=== PATIENT | male | born 1955 | race African-American/Black ===

== ENCOUNTER 2018-08-18 12:20 | Inpatient (IN) ==
[2018-08-18] MEDS ORDERED: NS 1,000 ML IV ONE (12:29)
--- NOTE | 2018-08-18 13:07 | Diag Imaging Result Doc PS360 ---
EXAM: CT HEAD W/O CONTRAST 08/18/2018 HISTORY: SYNCOP TECHNIQUE: This exam was performed using automated exposure control, adjustment of mA or kV according to patient size, and/or use of iterative reconstruction technique. COMMENT: There are extensive areas of encephalomalacia in the right hemisphere and the left posterior inferior cerebellar hemisphere. No evidence of bleed or mass effect is present. There are some cortical calcifications on the left. Compared to the previous examination of 09/18/2017 the appearance of the brain has not changed significantly. IMPRESSION: Extensive infarction of the right cerebral hemisphere and left cerebellar hemisphere. No evidence of acute change. Electronically signed by Rashaad Lim 08/18/2018 1:05 PM
[2018-08-18 13:14] LABS: URINE SOURCE CLEAN CATCH
--- NOTE | 2018-08-18 13:20 | Diag Imaging Result Doc PS360 ---
EXAM: SHOULDER-LEFT 08/18/2018 HISTORY: FALL TECHNIQUE: Left shoulder two views COMMENT: There is a fracture of the surgical neck of the humerus. There is deformity of the distal clavicle which may be due to previous fracture. The distal fragment of the humerus is displaced slightly anteriorly. IMPRESSION: Fracture of the proximal humerus. Electronically signed by Rashaad Lim 08/18/2018 1:18 PM
--- NOTE | 2018-08-18 13:21 | Diag Imaging Result Doc PS360 ---
EXAM: CHEST-1 VIEW 08/18/2018 HISTORY: SYNCOPE TECHNIQUE: Erect AP chest COMMENT: The fracture of the left humerus is again noted. Lungs are clearer than they were on 07/11/2018. IMPRESSION: Resolution of pulmonary edema seen on 07/11/2018. Fracture proximal left humerus. Electronically signed by Rashaad Lim 08/18/2018 1:19 PM
[2018-08-18 13:27] LABS: BILIRUBIN URINE NEGATIVE (NEGATIVE); BLOOD URINE TRACE (NEGATIVE); CLARITY CLEAR (CLEAR); COLOR YELLOW; GLUCOSE URINE NEGATIVE (NEGATIVE); KETONE URINE NEGATIVE (NEGATIVE); LEUKOCYTES URINE 2+ (NEGATIVE); NITRITE URINE POSITIVE (NEGATIVE); PROTEIN URINE NEGATIVE (NEGATIVE); URINE BACTERIA 3+ /HFP; URINE EPITHELIAL CELLS <10 /HPF (<10); UROBILINOGEN URINE NORMAL
[2018-08-18] MEDS ORDERED: MORPHINE IV ONE (13:54)
[2018-08-18 13:59] LABS: BASO# 0.03 X1000 (0.0-0.2); BASO% 0.5 % (0.0-0.8); EOS% 1.6 % (0.0-10.0); HEMATOCRIT 33.1 % (42.0-52.0); HEMOGLOBIN 11.7 g/dL (14.0-18.0); IMM GRAN# 0.01 X1000 (0.0-0.04); IMM GRAN% 0.2 % (0.0-0.5); LYMPH# 3.11 X1000 (1.2-3.4); LYMPH% 49.9 % (20.5-51.1); MCH 27.7 PG (27-31); MCHC 35.3 g/dL (33-37); MCV 78.3 FL (81-99); MONO# 0.32 X1000 (0.11-0.59); MONO% 5.1 % (1.7-9.3); MPV 10.6 FL (7.4-10.4); NEUT# 2.66 X1000 (1.4-6.5); NEUT% 42.7 % (42.2-75.2); PLT 272 X1000 (130-400); RBC 4.23 XMIL (4.7-6.1); RDW 14.9 % (11.5-14.5); WBC 6.23 X1000 (4.8-10.8)
[2018-08-18] MEDS ORDERED: ROCEPHIN 1 GM in NS 50 ML IV ONE (14:01)
[2018-08-18 14:14] LABS: AGAP 10; ALBUMIN 3.6 g/dL (3.5-5.0); ALKALINE PHOSPHATASE 56 U/L (32-122); BUN 8 mg/dL (8-22); CALCIUM 9.8 mg/dL (8.8-10.2); CHLORIDE 99 mmol/L (98-107); COSMO 276; CREATININE 0.8 mg/dL (0.7-1.2); ESTIMATED GFR > 60; GLUCOSE 107 mg/dL (70-104); GOT 16 U/L (10-34); GPT 13 U/L (10-44); POTASSIUM 3.1 mmol/L (3.5-5.1); SODIUM 139 mmol/L (136-145); TCO2 30 mmol/L (25-35); TOTAL PROTEIN 7.1 g/dL (6.3-8.3)
[2018-08-18 14:21] LABS: INR 0.91; PROTIME 12.7 Seconds (11.0-16.0)
[2018-08-18 14:22] LABS: PTT 30.5 Seconds (22.3-41.8)
--- NOTE | 2018-08-18 14:31 | EKG Report ---
Test Performed on : 08/18/2018 1:28:48 PM Test Reason : SYNCOPE Blood Pressure : / mmHG Vent. Rate : 068 BPM Atrial Rate : 326 BPM P-R Int : 106 ms QRS Dur : 098 ms QT Int : 426 ms P-R-T Axes : 133 055 220 degrees QTc Int : 452 ms Undetermined rhythm Left ventricular hypertrophy with repolarization abnormality Cannot rule out Septal infarct (cited on or before 03-JUN-2009) Abnormal ECG When compared with ECG of 11-JUL-2018 03:21, (Unconfirmed) Current undetermined rhythm precludes rhythm comparison, needs review ST no longer depressed in Inferior leads Unconfirmed Result
--- NOTE | 2018-08-18 15:41 | PROVIDER DOCUMENTATION ---
This chart was entered by Maxine Das Scribe, acting as scribe for Sg Miranda MD. HPI-Syncope/Dizziness - General Stated Complaint: syncope Time Seen by Provider: 08/18/18 12:25 Source: patient Allergies/Adverse Reactions: Patient Allergies Allergy/AdvReac Type Severity Reaction Status Date / Time No Known Allergies Allergy Verified 08/18/18 14:58 Home Medications: Home Medication List Medication Instructions Recorded Confirmed Last Taken Type Aspirin 81 mg PO DAILY 05/10/13 06/04/18 06/03/18 History Tamsulosin [Flomax] 0.4 mg PO DAILY #30 capsule 06/05/15 06/04/18 05/16/16 Rx ATORVAstatin [Lipitor] 40 mg PO QHS #30 tablet 03/05/16 06/04/18 06/03/18 Rx Citalopram [Celexa] 20 mg PO DAILY 05/16/16 06/04/18 06/03/18 History Divalproex Sodium [Depakote ER] 500 mg PO DAILY 05/16/16 06/04/18 06/03/18 History Latanoprost 0.005% Oph Soln 1 drop BOTH EYES HS 05/16/16 06/04/18 06/03/18 History [Xalatan 0.005% Oph Soln] [place]-3 Fatty Acids [Fish Oil] 1,000 mg PO DAILY 05/17/16 06/04/18 Unknown History Levetiracetam [Keppra] 500 mg PO BID #0 tablet 05/28/16 06/04/18 06/03/18 Rx Acetaminophen [Tylenol Extra 2 tab PO BID 04/12/18 06/04/18 06/03/18 History Strength] LISINOpril [Prinivil] 10 mg PO DAILY #90 tab 04/13/18 06/04/18 Unknown Rx Furosemide [Lasix] 40 mg PO BID #60 tab 05/08/18 06/04/18 06/03/18 Rx Tramadol [Ultram] 50 mg PO Q6H PRN PRN #12 tab 05/18/18 06/04/18 Unknown Rx Doxycycline 100 mg PO DAILY 7 Days #13 tab 07/11/18 Unknown Rx - History of Present Illness-Syncope/Dizzy Nature of Presenting Problem: Patient is a 62 year old male who presents to the ED with left shoulder pain after having a syncopal episode. Patient states having a headache this morning before having the syncopal episode. Patient denies chest pain or shortness of breath. Patient states history of CVA. Prior Episodes: reports: single episode today Onset/Duration: reports: just prior to arrival Timing: reports: still present Position/Activity at time of episode: reports: standing Symptoms prior to episode: reports: headache Context: reports: unknown Loss of Consciousness: unsure Location of injury. (If syncope resulted in an injury.): reports: LUE Current Symptoms: reports: none/feels normal Review of Systems - Adult - REVIEW OF SYSTEMS - ADULT Constitutional: reports: no symptoms reported Eyes: reports: no symptoms reported Ears, Nose, Mouth & Throat: reports: no symptoms reported Cardiovascular: reports: no symptoms reported Respiratory: reports: no symptoms reported Gastrointestinal: reports: no symptoms reported Genitourinary: reports: no symptoms reported Musculoskeletal: reports: other (left shoulder pain). denies: back pain, neck pain Integumentary: reports: no symptoms reported Neurological: reports: headache/migraines (ARCE), syncope. denies: dizziness/ vertigo, numbness Psychiatric: reports: no symptoms reported Endocrine: reports: no symptoms reported Hematologic/Lymphatic: reports: no symptoms reported Allergic/Immunologic: reports: no symptoms reported All Other Systems: Reviewed and Negative Past History - Adult - PAST MEDICAL HISTORY-ADULT Review of Records: reports: Nursing Assessment Review, Medications Reviewed, Social history reviewed & non-contributory. Major Childhood Illnesses: reports: denies history Cardiovascular: reports: CAD, CHF, HTN, hyperlipidemia, [place] Respiratory: reports: denies history Gastrointestinal: reports: denies history Obstetrical/Gynecological: reports: denies history Genitourinary: reports: retention, other (BPH) Musculoskeletal: reports: denies history Neurological: reports: CVA, stroke deficits (left sided), Seizures/Epilepsy ( seizures) Endocrine/Immune: reports: Diabetes Other Conditions: reports: denies history - PRIOR SURGERIES/PROCEDURES Surgical/Procedure History: reports: cardiac stent, other (abdominal surgery) - PRIOR HOSPITALIZATIONS Prior Hospitalizations: reports: for similar symptoms - IMMUNIZATION STATUS Childhood Immunizations: See Nurse Assessment Flu Vaccine: See Nurse Assessment - FAMILY HISTORY Family History: reviewed, not pertinent - SOCIAL HISTORY Smoking: cigarettes, less than 1 pack/day Provider spent 3-5 mins advising pt. on dangers of tobacco.: Discussed manners to quit use, and f/u contacts for add'l counseling. Substance Use: alcohol Alcohol Use Frequency: occasionally Physical Exam-General - PHYSICAL EXAM-ADULT Initial Vital Signs Reviewed: Yes - CONSTITUTIONAL General Appearance: alert, no apparent distress - HEAD, EARS, NOSE, MOUTH & THROAT HENMT: normal ENT inspection - NECK Neck: normal inspection - RESPIRATORY Respiratory: chest non-tender, lungs clear, normal breath sounds - CARDIOVASCULAR Cardiovascular: normal peripheral pulses, regular rate, rhythm - GASTROINTESTINAL (ABDOMEN) Abdominal Exam: normal bowel sounds, non tender, soft - MUSCULOSKELETAL Extremity: tenderness (left shoulder pain) - SKIN Integumentary: normal color, normal turgor, warm/dry - NEUROLOGIC Neurologic: other (LUE weakness secondary to prior CVA.) - PSYCHIATRIC Psych/Mental Status: normal mood/affect, oriented x 3 Progress - PLAN OF CARE/RESULTS Progress/Plan/Lab Results: Vital Signs - 8 hr 08/18/18 12:26 08/18/18 15:00 Temperature 97.8 F Pulse Rate 67 58 L Respiratory Rate 20 15 Blood Pressure 137/071 157/64 O2 Sat by Pulse Oximetry 98 100 Laboratory Results - last 24 hr 08/18/18 08/18/18 08/18/18 13:03 13:03 13:28 WBC RBC Hgb Hct MCV MCH MCHC RDW Std Deviation Plt Count MPV Immature Gran % (Auto) Neut % (Auto) Lymph % (Auto) Levy % (Auto) Eos % (Auto) Baso % (Auto) Immature Gran # (Auto) Neut # (Auto) Lymph # (Auto) Levy # (Auto) Eos # (Auto) Baso # (Auto) PT INR PTT (Actin FS) Sodium 139 Potassium 3.1 L Chloride 99 Carbon Dioxide 30 Anion Gap 10 BUN 8 Creatinine 0.8 Estimated GFR/1.73 m2 > 60 BUN/Creatinine Ratio 10 Glucose 107 H Calculated Osmolality 276 Calcium 9.8 Total Bilirubin 0.50 AST 16 ALT 13 Alkaline Phosphatase 56 Troponin T Total Protein 7.1 Albumin 3.6 Globulin 4.0 Albumin/Globulin Ratio 1.0 Plasma Lactate Urine Source Cancelled CLEAN CATCH Urine Color Cancelled YELLOW Urine Clarity CLEAR Urine Turbidity Cancelled Urine pH Cancelled 7.0 Ur Specific [place] Cancelled 1.000 Urine Protein Cancelled NEGATIVE Ur Glucose (Stick) Cancelled Urine Ketones NEGATIVE Ur Ketones (Stick) Cancelled Urine Blood Cancelled TRACE Urine Nitrite Cancelled POSITIVE A Urine Bilirubin Cancelled NEGATIVE Urine Urobilinogen NORMAL Urobilinogen Dipstick Cancelled Urine Leukocytes Cancelled Urine WBC (Auto) Cancelled Urine RBC (Auto) Cancelled U Epithel Cells (Auto) Cancelled Urine Bacteria (Auto) Cancelled Urine Microscopic RBC Not Reportable Urine WBC 2+ A Urine Microscopic WBC 10-20 A Ur Epithelial Cells <10 Urine Bacteria 3+ Urine Glucose NEGATIVE 08/18/18 08/18/18 08/18/18 13:28 13:28 13:28 WBC 6.23 RBC 4.23 L Hgb 11.7 L Hct 33.1 L MCV 78.3 L MCH 27.7 MCHC 35.3 RDW Std Deviation 14.9 H Plt Count 272 MPV 10.6 H Immature Gran % (Auto) 0.2 Neut % (Auto) 42.7 Lymph % (Auto) 49.9 Levy % (Auto) 5.1 Eos % (Auto) 1.6 Baso % (Auto) 0.5 Immature Gran # (Auto) 0.01 Neut # (Auto) 2.66 Lymph # (Auto) 3.11 Levy # (Auto) 0.32 Eos # (Auto) 0.10 Baso # (Auto) 0.03 PT 12.7 INR 0.91 PTT (Actin FS) 30.5 Sodium Potassium Chloride Carbon Dioxide Anion Gap BUN Creatinine Estimated GFR/1.73 m2 BUN/Creatinine Ratio Glucose Calculated Osmolality Calcium Total Bilirubin AST ALT Alkaline Phosphatase Troponin T < 0.010 Total Protein Albumin Globulin Albumin/Globulin Ratio Plasma Lactate Urine Source Urine Color Urine Clarity Urine Turbidity Urine pH Ur Specific [place] Urine Protein Ur Glucose (Stick) Urine Ketones Ur Ketones (Stick) Urine Blood Urine Nitrite Urine Bilirubin Urine Urobilinogen Urobilinogen Dipstick Urine Leukocytes Urine WBC (Auto) Urine RBC (Auto) U Epithel Cells (Auto) Urine Bacteria (Auto) Urine Microscopic RBC Urine WBC Urine Microscopic WBC Ur Epithelial Cells Urine Bacteria Urine Glucose 08/18/18 14:15 WBC RBC Hgb Hct MCV MCH MCHC RDW Std Deviation Plt Count MPV Immature Gran % (Auto) Neut % (Auto) Lymph % (Auto) Levy % (Auto) Eos % (Auto) Baso % (Auto) Immature Gran # (Auto) Neut # (Auto) Lymph # (Auto) Levy # (Auto) Eos # (Auto) Baso # (Auto) PT INR PTT (Actin FS) Sodium Potassium Chloride Carbon Dioxide Anion Gap BUN Creatinine Estimated GFR/1.73 m2 BUN/Creatinine Ratio Glucose Calculated Osmolality Calcium Total Bilirubin AST ALT Alkaline Phosphatase Troponin T Total Protein Albumin Globulin Albumin/Globulin Ratio Plasma Lactate 0.6 Urine Source Urine Color Urine Clarity Urine Turbidity Urine pH Ur Specific [place] Urine Protein Ur Glucose (Stick) Urine Ketones Ur Ketones (Stick) Urine Blood Urine Nitrite Urine Bilirubin Urine Urobilinogen Urobilinogen Dipstick Urine Leukocytes Urine WBC (Auto) Urine RBC (Auto) U Epithel Cells (Auto) Urine Bacteria (Auto) Urine Microscopic RBC Urine WBC Urine Microscopic WBC Ur Epithelial Cells Urine Bacteria Urine Glucose Orders Category Date Time Status Cardiac Monitoring DIRECTED Care 08/18/18 12:26 Active Finger Stick Blood Sugar (ED) DIRECTED Care 08/18/18 12:26 Active Saline Loc NOW Care 08/18/18 12:26 Active Shoulder Immobilizer DIRECTED Care 08/18/18 13:52 Active CHEST-1 VIEW [RAD] Stat Exams 08/18/18 12:[address] HEAD W/O CONTRAST [CT] Stat Exams 08/18/18 12:26 Completed SHOULDER-LEFT [RAD] Stat Exams 08/18/18 12:27 Completed BC [BLOOD CULTURE] [BLDCUL] Stat Lab 08/18/18 14:24 Ordered CBC WITH ELECTRONIC DIFF [HEME] Stat Lab 08/18/18 13:28 Completed COMPREHENSIVE METABOLIC PANEL [CHEM] Stat Lab 08/18/18 13:28 Completed LACTATE, PLASMA [CHEM] Stat Lab 08/18/18 14:15 Completed PROTIME WITH INR [COAG] Stat Lab 08/18/18 13:28 Completed PTT [COAG] Stat Lab 08/18/18 13:28 Completed TROPONIN T Stat Lab 08/18/18 13:[address] W/POSS RFLX CULT [URINALYSIS] Stat Lab 08/18/18 13:03 Completed URINE CULTURE [RM] Routine Lab 08/18/18 13:27 Ordered 0.9% Sodium Chloride Inj [Ns] 1,000 ml Med 08/18/18 12:29 Active IV 150 mls/hr CefTRIAXONE [Rocephin] 1 gm Med 08/18/18 14:01 Discontinued 0.9% Sodium Chloride Inj [Ns] 50 ml IV NOW Morphine Med 08/18/18 13:54 Discontinued 4 mg IV NOW ONE EKG [EKG] Stat Ther 08/18/18 12:26 Draft Result Diagrams: 08/18/18 13:28 08/18/18 13:28 - EKG 1 Time of EKG reading by physician:: 13:45 EKG Read and Signed by:: Sg Miranda EKG Interpretation (*Must complete 3 of following elements*): Abnormal Rate: 65 Rhythm: normal sinus rhythm [place]: normal QRS: LVH OR Interval: normal ST Wave: non-specific ST changes Comments: anteroseptal infarct, age undetermined - XRAY 1 XRAY Study: Chest Impression: See EMR Report ( EXAM: CHEST-1 VIEW 08/18/2018 HISTORY: SYNCOPE TECHNIQUE: Erect AP chest COMMENT: The fracture of the left humerus is again noted. Lungs are clearer than they were on 07/11/2018. IMPRESSION: Resolution of pulmonary edema seen on 07/11/2018. Fracture proximal left humerus. Electronically signed by Rashaad Lim 08/18/2018 1:19 PM 08/18/18 1319 Interpreting Physician: Rashaad Lim MD Dictated Date/Time: 1318 cc: Sg Miranda MD;) 2 XRAY: Left XRAY Study: Shoulder Impression: See EMR Report (EXAM: SHOULDER-LEFT 08/18/2018 HISTORY: FALL TECHNIQUE: Left shoulder two views COMMENT: There is a fracture of the surgical neck of the humerus. There is deformity of the distal clavicle which may be due to previous fracture. The distal fragment of the humerus is displaced slightly anteriorly. IMPRESSION: Fracture of the proximal humerus. Electronically signed by Rashaad Lim 08/18/2018 1:18 PM 08/18/18 1318 Interpreting Physician: Rashaad Lim MD Dictated Date/Time: 1317 cc: Sg Miranda MD;) - CT/MRI 1 CT Study: Head Impression: See EMR Report ( EXAM: CT HEAD W/O CONTRAST 08/18/2018 HISTORY: SYNCOP TECHNIQUE: This exam was performed using automated exposure control, adjustment of mA or kV according to patient size, and/or use of iterative reconstruction technique. COMMENT: There are extensive areas of encephalomalacia in the right hemisphere and the left posterior inferior cerebellar hemisphere. No evidence of bleed or mass effect is present. There are some cortical calcifications on the left. Compared to the previous examination of 09/18/2017 the appearance of the brain has not changed significantly. IMPRESSION: Extensive infarction of the right cerebral hemisphere and left cerebellar hemisphere. No evidence of acute change. Electronically signed by Rashaad Lim 08/18/2018 1:05 PM 08/18/18 1305 Interpreting Physician: Rashaad Lim MD Dictated Date/Time: 1303 cc: Sg Miranda MD;) - CONSULTS/PCP/HOSPITALIST Notification #1 *Consult/PCP/Hospitalist*: Dr. Crowe Time Discussed: :24 Reason/Comments: Dr. Miranda consulted with Dr. Crowe about patient. Consult Disposition: Admit Departure - Departure Date of Disposition Decision: 08/18/18 Time of Disposition Decision: 15:24 DIAGNOSIS: UTI (urinary tract infection), Syncope, Left humeral fracture Disposition: ADMITTED INPATIENT 09 Certified Medical Emergency: Emergent Condition: Stable Referrals and Follow-Ups: Trudi Yen [Primary Care Provider] - - Critical Care Note This patient required my direct & personal management of CC.: No Attestation - Physician/ SPIKE Attestation Patient care was provided by Advanced Practice Provider:: No The physician spent face to face time with patient:: Yes Advanced Practice Provider documentation review:: Supervising physician onsite and consulted in the evaluation and care of this patient. The physician did have a face to face encounter with the patient. This chart was documented by the indicated scribe, (Maxine Das Scribe) and accurately reflects the services I performed and decisions made by me, Sg Miranda MD, as attested by the provider's signature.
[2018-08-18] MEDS ORDERED: KLOR-CON PO ONE (17:39)
[2018-08-18] MEDS ORDERED: ZOFRAN IV PRN (17:40)
[2018-08-18] MEDS ORDERED: ULTRAM PO PRN (17:46)
[2018-08-18] MEDS: NORCO-5 PO PRN (19:44)
[2018-08-18] MEDS: LOVENOX SUBQ SCH ×2 (19:45→19:49)
[2018-08-18] MEDS: GEODON IM PRN (20:19)
[2018-08-18] MEDS: STERILE WATER INJ. INJ PRN (20:20)
[2018-08-18] MEDS: LIPITOR PO SCH (20:20)
[2018-08-18] MEDS: LASIX PO SCH (20:20)
[2018-08-18] MEDS: KEPPRA PO SCH (20:20)
[2018-08-18] MEDS: XALATAN 0.005% OPH SOLN BOTH EYES SCH (20:21)
--- NOTE | 2018-08-18 23:40 | HISTORY AND PHYSICAL ---
PRIMARY CARE PHYSICIAN: Dr. Trudi Yen. CHIEF COMPLAINT: Syncope. HISTORY OF PRESENT ILLNESS: This is a chronically ill-looking, 62-year-old male who presented to the emergency department because he was brought by ambulance because he had syncope at home. The patient reports that he was at home looking for the TV remote when he suddenly noticed some dizziness, and he was feeling that he was about to pass out. Then he does not remember what happened after that, and apparently he was down for about a half an hour. Then he called 911 from his cell phone, and he was brought to the emergency department. He denies any urinary or fecal incontinence. He does not feel confused just after this episode of loss of consciousness. On getting more information from him, he denies any fever, chills, any weight loss. The patient reports mild burning on urination that started happening a couple of days ago. Denies any chest pressure or palpitations just prior to this episode of loss of consciousness. Because of that fall, he had a fracture of the proximal left humerus. The patient is being admitted for further evaluation and treatment of syncope and UTI. PAST MEDICAL HISTORY: 1. 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 2. Carotid artery disease. 3. Coronary artery disease status post PCI. 4. Seizure disorder. 5. Hyperlipidemia. 6. History of polysubstance abuse in the past. 7. Nicotine dependence. 8. Benign prostatic hypertrophy. 9. Diabetes mellitus type 2. PAST SURGICAL HISTORY: 1. Colostomy which was reversed due to rectal abscess. 2. Stents placed a few years ago. SOCIAL HISTORY: The patient continues to smoke, but he reports using electronic cigarette. The patient denies using any illicit drugs but reports drinking alcohol occasionally. The patient lives alone, but sister lives near to him and comes to check on him often. ALLERGIES: No known drug allergies. REVIEW OF SYSTEMS: Eleven systems were reviewed, and all symptoms are related to H and P. HOME MEDICATIONS: Reconciliation medication list will be coming. PHYSICAL EXAMINATION: VITAL SIGNS: Temperature 97.8 degrees, heart rate 67, respiratory rate 20, blood pressure 137/71, O2 saturation 98% on room air. GENERAL EXAMINATION: This is a 62-year-old female lying in bed, in no acute distress. HEENT: Head is normocephalic, atraumatic. NECK: No JVD noted. No carotid bruits. No lymphadenopathy. No thyromegaly. CARDIOVASCULAR SYSTEM: S1, S2 heard. No murmurs, gallops, or rubs. Regular rate and rhythm. RESPIRATORY EXAM: Clear bilaterally to auscultation. No work of breathing or using accessory muscles. ABDOMEN: Soft, nontender to palpation. Bowel sounds present. No organomegaly. EXTREMITIES: No clubbing, cyanosis, or edema. Peripheral pulses present in both legs. NEUROLOGICAL: The patient is alert, oriented x3. There is residual left-sided weakness. LABORATORY DATA: CBC indicates white cell count 6.23 with hemoglobin 11.7, hematocrit 33.1, platelets 272,000. Potassium 3.1. Normal hepatic function. The urine indicates possible UTI. ASSESSMENT AND PLAN: 1. Syncope. 2. Urinary tract infection. 3. Coronary artery disease. 4. History of strokes in the past. 5. Seizure disorder. 6. Diabetes mellitus type 2. PLAN: 1. For syncope, we are going to put this patient on telemetry. 2. The patient reports having had some cough, but I do not know if it is because this patient is a smoker or not. In that regard, we are going to order a CT without contrast to see there is any pneumonia or not. 3. Considering his history of coronary artery disease, we are going to check and see what was the last time that he got an echocardiogram. Otherwise, we will order a new one. 4. Also, for seizure disorder, the history does not look like he had seizure activity. At this point, I do not think we are going to do an EEG. 5. For UTI, we are waiting for urine cultures, but we have started this patient on Rocephin and will go from there. 6. For diabetes mellitus type 2, we will check hemoglobin A1c, and we will do Accu-Cheks before meals and also at bedtime. 7. Further recommendations to follow according to the clinical situation of the patient. cc: MD AMINA Villar
[2018-08-19] MEDS: ATIVAN IM PRN (00:21)
[2018-08-19] MEDS: BENADRYL IV PRN (00:21)
[2018-08-19 00:43] LABS: UR AMPHETAMINES QUAL NONE DETECTED (NONE DETECT); UR BARBITUATES QUAL NONE DETECTED (NONE DETECT); UR BENZODIAZEPIN QUAL NONE DETECTED (NONE DETECT); UR CANNABINOIDS QUAL NONE DETECTED (NONE DETECT); UR COCAINE QUAL NONE DETECTED (NONE DETECT); UR METHADONE QUAL NONE DETECTED (NONE DETECT); UR METHAMPHETAMINE QUAL NONE DETECTED (NONE DETECT); UR OPIATES QUAL PRESUMPTIVE POSITIVE (NONE DETECT); UR OXYCODONE QUAL NONE DETECTED (NONE DETECT); UR PCP QUAL NONE DETECTED (NONE DETECT); UR PROPOXYPHENE QUAL NONE DETECTED (NONE DETECT); UR TCA QUAL NONE DETECTED (NONE DETECT)
[2018-08-19] MEDS: NORCO-5 PO PRN ×4 (04:15→23:37)
[2018-08-19] MEDS: PRILOSEC PO SCH (06:13)
[2018-08-19 06:54] LABS: BASO# 0.01 X1000 (0.0-0.2); BASO% 0.2 % (0.0-0.8); EOS# 0.06 X1000 (0.0-0.7); HEMATOCRIT 31.4 % (42.0-52.0); HEMOGLOBIN 10.7 g/dL (14.0-18.0); LYMPH# 2.42 X1000 (1.2-3.4); LYMPH% 40.3 % (20.5-51.1); MCH 26.9 PG (27-31); MCHC 34.1 g/dL (33-37); MCV 78.9 FL (81-99); MONO# 0.37 X1000 (0.11-0.59); MONO% 6.2 % (1.7-9.3); NEUT# 3.15 X1000 (1.4-6.5); NEUT% 52.3 % (42.2-75.2); PLT 254 X1000 (130-400); RBC 3.98 XMIL (4.7-6.1); RDW 14.9 % (11.5-14.5); WBC 6.01 X1000 (4.8-10.8)
[2018-08-19 07:09] LABS: AGAP 9; BUN 8 mg/dL (8-22); CALCIUM 8.9 mg/dL (8.8-10.2); CHLORIDE 107 mmol/L (98-107); COSMO 285; CREATININE 0.7 mg/dL (0.7-1.2); ESTIMATED GFR > 60; GLUCOSE 94 mg/dL (70-104); POTASSIUM 3.4 mmol/L (3.5-5.1); SODIUM 144 mmol/L (136-145); TCO2 28 mmol/L (25-35)
[2018-08-19] MEDS: DEPAKOTE ER PO SCH (08:20)
[2018-08-19] MEDS: FISH OIL CONCENTRATE PO SCH (08:21)
[2018-08-19] MEDS: FLOMAX PO SCH (08:21)
[2018-08-19] MEDS: LASIX PO SCH ×2 (08:21→21:00)
[2018-08-19] MEDS: ASPIRIN PO SCH (08:21)
[2018-08-19] MEDS: KEPPRA PO SCH ×2 (08:21→21:00)
[2018-08-19] MEDS: CELEXA PO SCH (08:21)
--- NOTE | 2018-08-19 10:57 | EKG Report ---
Test Performed on : 08/18/2018 1:45:24 PM Test Reason : ER Blood Pressure : / mmHG Vent. Rate : 065 BPM Atrial Rate : 065 BPM P-R Int : 162 ms QRS Dur : 094 ms QT Int : 458 ms P-R-T Axes : 066 048 214 degrees QTc Int : 476 ms Normal sinus rhythm. Left ventricular hypertrophy with repolarization abnormality Anteroseptal infarct (cited on or before 03-JUN-2009) Abnormal ECG When compared with ECG of 18-AUG-2018 13:31, (Unconfirmed) Previous ECG has undetermined rhythm, needs review ST no longer elevated in Inferior leads Unconfirmed Result
[2018-08-19] MEDS ORDERED: NORVASC PO SCH (11:00)
--- NOTE | 2018-08-19 11:17 | Diag Imaging Result Doc PS360 ---
EXAM: CT THORAX W/O CONTRAST HISTORY: r/o pna TECHNIQUE: Images were obtained from the lung apices through bases as per standard protocol. COMPARISON: None. FINDINGS: Mediastinum is unremarkable. There is a left coronary artery stent. Scattered calcific atherosclerotic disease. Hypodense vascular compartment suggests anemia. No focal consolidation or parenchymal nodules. Linear strandy increased attenuation is noted right lower lobe consistent with subsegmental atelectasis or scarring. No pneumothorax. No effusion. Images of the upper abdomen are unremarkable. Musculoskeletal structures are unremarkable. IMPRESSION: Minimal strandy atelectasis or scarring right lower lobe. No focal pneumonia. Coronary artery stent. This exam was performed using automated exposure control, adjustment of mA or kV according to patient size, and/or use of iterative reconstruction technique. Electronically signed by Katerine Ko 08/19/2018 11:15 AM
[2018-08-19 11:22] LABS: IRON SATURATION 13 %; TIBC 284 ug/dL; TOTAL IRON 37 ug/dL (53-167); UNBOUND IRON 247 ug/dL (112-346)
--- NOTE | 2018-08-19 11:22 | PROGRESS NOTE ---
DATE: 08/19/2018 SUBJECTIVE: The patient denies having any acute complaints this morning. OBJECTIVE: Vital Signs: Temperature 98.4, pulse 74 per minute, respiratory rate 18 per minute, blood pressure 184/68, pulse oximetry 100% on room air. General: The patient is alert and awake. He does not appear to be in any acute distress. Cardiovascular System: First and second heart sounds are audible without any murmurs or gallops. Respiratory System: No respiratory distress noted. Bilateral lung air entry is moderately decreased, but there are no rales or rhonchi present on auscultation. Gastrointestinal: Gastrointestinal: Abdomen is nondistended. It is nontender on palpation and normal bowel sounds are present. Musculoskeletal System: Left upper extremity is in a sling, and his left upper arm appears to be bruised and edematous with some tenderness present. DIAGNOSTIC DATA: CBC shows hemoglobin of 10.7 and hematocrit 31.4. In comparison, his hemoglobin and hematocrit were 11.7 and 33.1 yesterday. Chemistry showed potassium levels of 3.4. Rest of the basic metabolic panel is nondiagnostic. Magnesium levels were found to be 2.0. TSH levels were found to be normal at 1.17 and plasma lactate levels were also normal at 0.6. IMPRESSION: This is a 62-year-old -[place] gentleman who has been admitted to the hospital after having syncope and sustained a fracture of the left proximal humerus. He also has uncontrolled hypertension, urinary tract infection secondary to gram-negative rods and, also, has anemia. Furthermore, he has multiple comorbid conditions including coronary artery disease, seizure disorder, type 2 diabetes mellitus, and dyslipidemia. PLAN: The patient will be kept here on the Med/Surg Floor, and I am going to obtain workup for anemia including stool for Hemoccult, B12/folate levels, and iron studies. He will continue with ceftriaxone intravenously for gram-negative nicolle. Urinary tract infection. His blood pressure has been elevated because of which I am going to start him on amlodipine 5 mg daily. We will continue with the rest of his routine medications and care. Further recommendations will be given as per hospital course. cc: Grant Hyatt MD
[2018-08-19] MEDS: ROCEPHIN 1 GM in NS 50 ML IV SCH (13:33)
[2018-08-19] MEDS: LOVENOX SUBQ SCH (17:33)
--- NOTE | 2018-08-19 20:18 | ECHO REPORT ---
ORDER DATE: 08/18/2018 (Echocardiogram done with addition of Definity). INDICATION: Evaluation of syncope in 62-year-old male. M-MODE MEASUREMENTS: Left ventricle end diastole: 4.5. Left ventricle end systole: 3.0. Posterior wall: 1.2. Interventricular septum: 1.2. Left atrium: 3.4. Aortic root: 3.2. SUMMARY OF 2-DIMENSIONAL IMAGIN. Left ventricular function appears to be normal. Ejection fraction is 59%. I do not see any definite indication of a wall motion abnormality. 2. The right ventricle appears to be normal. 3. The aortic valve showed a mild degree of regurgitation. There is no stenosis. 4. The mitral valve is normal. Color flow mapping unremarkable. 5. Pulsed wave Doppler of mitral inflow showed mild reversal of the E/A ratio. The ratio is 0.7. 6. Tissue Doppler of septal and lateral mitral annulus averages 7 cm. 7. The tricuspid valve showed a mild degree of regurgitation. 8. The inferior vena cava is not elevated. 9. Pulmonary pressure is 37 mmHg. 10.The pulmonic valve is normal. Color flow mapping unremarkable. 11.There is no pericardial effusion. No masses, no thrombus. 12.The atria appear to be unremarkable. Clinical correlation recommended. cc: MD Avery Cavazos MD
[2018-08-19] MEDS: LIPITOR PO SCH (21:00)
[2018-08-19] MEDS: XALATAN 0.005% OPH SOLN BOTH EYES SCH (21:00)
[2018-08-20] MEDS: NORCO-5 PO PRN ×5 (03:48→22:02)
[2018-08-20 06:12] LABS: BASO# 0.03 X1000 (0.0-0.2); BASO% 0.6 % (0.0-0.8); EOS# 0.07 X1000 (0.0-0.7); EOS% 1.3 % (0.0-10.0); HEMOGLOBIN 12.5 g/dL (14.0-18.0); LYMPH# 2.94 X1000 (1.2-3.4); LYMPH% 55.4 % (20.5-51.1); MCH 27.1 PG (27-31); MCHC 34.7 g/dL (33-37); MCV 77.9 FL (81-99); MONO% 7.5 % (1.7-9.3); MPV 10.9 FL (7.4-10.4); NEUT# 1.87 X1000 (1.4-6.5); NEUT% 35.2 % (42.2-75.2); PLT 300 X1000 (130-400); RBC 4.62 XMIL (4.7-6.1); RDW 14.9 % (11.5-14.5); WBC 5.31 X1000 (4.8-10.8)
[2018-08-20 06:33] LABS: AGAP 11; BUN 9 mg/dL (8-22); CALCIUM 9.5 mg/dL (8.8-10.2); CHLORIDE 97 mmol/L (98-107); COSMO 272; CREATININE 0.8 mg/dL (0.7-1.2); ESTIMATED GFR > 60; GLUCOSE 90 mg/dL (70-104); POTASSIUM 3.6 mmol/L (3.5-5.1); SODIUM 137 mmol/L (136-145); TCO2 29 mmol/L (25-35)
[2018-08-20] MEDS: PRILOSEC PO SCH (06:35)
[2018-08-20] MEDS: FISH OIL CONCENTRATE PO SCH (09:11)
[2018-08-20] MEDS: LASIX PO SCH ×2 (09:12→22:03)
[2018-08-20] MEDS: DEPAKOTE ER PO SCH (09:12)
[2018-08-20] MEDS: FOLIC ACID PO SCH (09:12)
[2018-08-20] MEDS: ASPIRIN PO SCH (09:12)
[2018-08-20] MEDS: FLOMAX PO SCH (09:12)
[2018-08-20] MEDS: NORVASC PO SCH (09:12)
[2018-08-20] MEDS: KEPPRA PO SCH ×2 (09:12→22:03)
[2018-08-20] MEDS: CELEXA PO SCH (09:12)
--- NOTE | 2018-08-20 11:20 | PROGRESS NOTE ---
DATE: 08/20/2018 SUBJECTIVE: The patient denies having any acute complaints this morning. OBJECTIVE: Vital Signs: Temperature 98.0 degrees, pulse 70 per minute, respiratory rate 18 per minute, blood pressure 172/62, pulse oximetry 100% on room air. General: Patient is alert and oriented x3. He does not appear to be in any acute distress. Cardiovascular System: First and second heart sounds are audible without any murmurs or gallops. Respiratory System: No respiratory distress noted. Bilateral lung air entry is good without any rales or rhonchi. Gastrointestinal: Abdomen is soft and nondistended. It is nontender on palpation and normal bowel sounds are present. DIAGNOSTIC DATA: CBC showed improvement of hemoglobin and hematocrit with his hemoglobin this morning recorded at 12.5 and hematocrit 36.0. Chemistry was nondiagnostic and urine culture grew Enterobacter species. This is sensitive to ceftriaxone that the patient has been receiving. IMPRESSION: This is a 62-year-old gentleman who was admitted after having 1. Syncope. 2. Fracture of his left proximal humerus. 3. Uncontrolled hypertension. 4. History of coronary artery disease. 5. Seizure disorder. 6. Type 2 diabetes mellitus. 7. Urinary tract infection secondary to Enterobacter species. PLAN: The patient will be kept here in the Med/Surg floor, and I am going to increase the dose of amlodipine to 10 mg daily to address his uncontrolled hypertension. He will be kept on other routine medications including ceftriaxone intravenously. VTE will be provided with enoxaparin 40 mg subcutaneously every 24 hours. Further recommendations will be given as per hospital course. cc: Grant Hyatt MD
[2018-08-20] MEDS: ROCEPHIN 1 GM in NS 50 ML IV SCH (15:05)
[2018-08-20] MEDS: LOVENOX SUBQ SCH (18:47)
[2018-08-20] MEDS: BENADRYL IV PRN (19:42)
[2018-08-20] MEDS: ATIVAN IM PRN (19:43)
[2018-08-20] MEDS: LIPITOR PO SCH (22:03)
[2018-08-20] MEDS: XALATAN 0.005% OPH SOLN BOTH EYES SCH (22:03)
[2018-08-20] MEDS: STERILE WATER INJ. INJ PRN (22:32)
[2018-08-20] MEDS: GEODON IM PRN (22:32)
[2018-08-21] MEDS: ATIVAN IM PRN (06:32)
[2018-08-21] MEDS: PRILOSEC PO SCH (06:33)
[2018-08-21] MEDS: BENADRYL IV PRN (06:33)
[2018-08-21 07:03] LABS: EOS# 0.02 X1000 (0.0-0.7); EOS% 0.3 % (0.0-10.0); HEMATOCRIT 38.3 % (42.0-52.0); HEMOGLOBIN 13.4 g/dL (14.0-18.0); IMM GRAN# 0.01 X1000 (0.0-0.04); IMM GRAN% 0.1 % (0.0-0.5); LYMPH# 1.33 X1000 (1.2-3.4); LYMPH% 18.3 % (20.5-51.1); MCH 27.1 PG (27-31); MCV 77.4 FL (81-99); MONO# 0.26 X1000 (0.11-0.59); MONO% 3.6 % (1.7-9.3); MPV 10.6 FL (7.4-10.4); NEUT# 5.63 X1000 (1.4-6.5); NEUT% 77.7 % (42.2-75.2); PLT 350 X1000 (130-400); RBC 4.95 XMIL (4.7-6.1); RDW 14.9 % (11.5-14.5); WBC 7.25 X1000 (4.8-10.8)
[2018-08-21 07:32] LABS: AGAP 13; BUN 10 mg/dL (8-22); CALCIUM 9.9 mg/dL (8.8-10.2); CHLORIDE 98 mmol/L (98-107); COSMO 274; CREATININE 0.7 mg/dL (0.7-1.2); ESTIMATED GFR > 60; GLUCOSE 125 mg/dL (70-104); POTASSIUM 3.4 mmol/L (3.5-5.1); SODIUM 137 mmol/L (136-145); TCO2 26 mmol/L (25-35)
[2018-08-21] MEDS: NORCO-5 PO PRN ×2 (09:51→22:58)
[2018-08-21] MEDS: NORVASC PO SCH (09:52)
[2018-08-21] MEDS: FLOMAX PO SCH (09:52)
[2018-08-21] MEDS: ASPIRIN PO SCH (09:52)
[2018-08-21] MEDS: KEPPRA PO SCH ×2 (09:52→20:53)
[2018-08-21] MEDS: FISH OIL CONCENTRATE PO SCH (09:52)
[2018-08-21] MEDS: DEPAKOTE ER PO SCH (09:52)
[2018-08-21] MEDS: LASIX PO SCH ×2 (09:52→20:53)
[2018-08-21] MEDS: CELEXA PO SCH (09:52)
[2018-08-21] MEDS: FOLIC ACID PO SCH (10:13)
[2018-08-21] MEDS: ROCEPHIN 1 GM in NS 50 ML IV SCH (15:30)
[2018-08-21] MEDS: LOVENOX SUBQ SCH ×3 (17:26→20:53)
[2018-08-21] MEDS: XALATAN 0.005% OPH SOLN BOTH EYES SCH (20:53)
[2018-08-21] MEDS: LIPITOR PO SCH (20:53)
[2018-08-22] MEDS: PRILOSEC PO SCH (06:39)
--- NOTE | 2018-08-22 08:54 | PROGRESS NOTE ---
DATE: 08/21/2018 SUBJECTIVE: Patient denies any active complaints this morning. OBJECTIVE: Vital signs: Temperature is 97.3, pulse rate is 69, respiratory rate is 20, blood pressure 125/60, pulse oximetry 96 % on room air. General: Patient is alert and oriented. He does not appear to be in any acute distress . Respiratory: No respiratory distress noted. Abdomen: Soft and nondistended, normal bowel sounds. DIAGNOSTIC DATA: CBC is nondiagnostic. Chemistry showed a potassium of 3.4 and glucose of 125. The rest of the chemistries are nondiagnostic. IMPRESSION: 1. Fall with left proximal humerus fracture for which conservative management has been recommended. 2. Hypertension that is now better controlled. 3. Urinary tract infection. 4. Coronary artery disease. 5. Seizure disorder. 6. Type 2 diabetes mellitus . PLAN: Continue ceftriaxone intervenously for his urinary tract infection. His condition has gradually improved with therapy. He will continue with his antihypertensive medication including amlodipine 10 mg daily, furosemide 40 mg daily. His blood pressure has significantly improved as compared to the previous days. He will continue rest of medications. I believe discharge is going to be an issue here and therefore I am going to get social involved to find a solution for that. cc: Grant Hyatt MD
[2018-08-22] MEDS: CELEXA PO SCH (10:22)
[2018-08-22] MEDS: FLOMAX PO SCH (10:22)
[2018-08-22] MEDS: NORVASC PO SCH (10:22)
[2018-08-22] MEDS: FISH OIL CONCENTRATE PO SCH (10:22)
[2018-08-22] MEDS: DEPAKOTE ER PO SCH (10:23)
[2018-08-22] MEDS: KEPPRA PO SCH ×2 (10:23→20:57)
[2018-08-22] MEDS: FOLIC ACID PO SCH (10:23)
[2018-08-22] MEDS: ASPIRIN PO SCH (10:23)
[2018-08-22] MEDS: LASIX PO SCH ×2 (10:23→20:58)
[2018-08-22] MEDS: ROCEPHIN 1 GM in NS 50 ML IV SCH (16:26)
--- NOTE | 2018-08-22 16:43 | PROGRESS NOTE ---
DATE: 08/22/2018 SUBJECTIVE: Patient has no focal complaints. OBJECTIVE: Vital Signs: Blood pressure is 162/62, heart rate of 69, respiratory rate 16, temperature 97.9 degrees. Cardiovascular: Regular rate and rhythm. Pulmonary: Bilateral breath sounds. Clear to auscultation. Gastrointestinal: Abdomen soft, nontender, nondistended. Bowel sounds are positive. LABORATORY DATA: I do not have any new data today but it has been okay previously. PROBLEM LIST: 1. Left humeral fracture which we are treating with PT. We will continue to follow. 2. Hypertension is stable currently. 3. Reported urinary tract infection with Enterobacter cloacae which is sensitive to everything except cefazolin and Macrobid. He is currently on Rocephin which is acceptable treatment. He has been on antibiotics though since the , 4 days, so probably a total of 7 days. 4. Seizure disorder appears stable. PLAN: I think he is probably close to being able to go home, but it is unclear how he is going to do at home or if he has got anybody take care of him. He refuses physical therapy. He is very rude with them and, of course, reportedly, he feels it is because they are being disrespectful, which I am not really sure if that really manifests the issue. DISPOSITION: We are going to discharge him when we understand he is has a safe discharge at home. cc: West De Leon MD
[2018-08-22] MEDS: NORCO-5 PO PRN (19:03)
[2018-08-22] MEDS: LOVENOX SUBQ SCH ×2 (19:03→19:06)
[2018-08-22] MEDS: XALATAN 0.005% OPH SOLN BOTH EYES SCH (20:57)
[2018-08-22] MEDS: LIPITOR PO SCH (20:58)
[2018-08-23] MEDS: NORCO-5 PO PRN ×4 (01:40→22:59)
[2018-08-23] MEDS: PRILOSEC PO SCH ×2 (05:35→06:06)
[2018-08-23 07:05] LABS: BASO# 0.01 X1000 (0.0-0.2); BASO% 0.2 % (0.0-0.8); EOS# 0.02 X1000 (0.0-0.7); EOS% 0.4 % (0.0-10.0); HEMATOCRIT 36.3 % (42.0-52.0); HEMOGLOBIN 12.7 g/dL (14.0-18.0); IMM GRAN# 0.01 X1000 (0.0-0.04); IMM GRAN% 0.2 % (0.0-0.5); LYMPH# 2.31 X1000 (1.2-3.4); LYMPH% 43.2 % (20.5-51.1); MCH 27.1 PG (27-31); MCV 77.4 FL (81-99); MONO# 0.35 X1000 (0.11-0.59); MONO% 6.5 % (1.7-9.3); MPV 10.5 FL (7.4-10.4); NEUT# 2.65 X1000 (1.4-6.5); NEUT% 49.5 % (42.2-75.2); PLT 328 X1000 (130-400); RBC 4.69 XMIL (4.7-6.1); RDW 14.8 % (11.5-14.5); WBC 5.35 X1000 (4.8-10.8)
[2018-08-23 07:21] LABS: AGAP 13; BUN 10 mg/dL (8-22); CALCIUM 9.3 mg/dL (8.8-10.2); CHLORIDE 92 mmol/L (98-107); COSMO 268; CREATININE 0.7 mg/dL (0.7-1.2); ESTIMATED GFR > 60; GLUCOSE 119 mg/dL (70-104); POTASSIUM 3.5 mmol/L (3.5-5.1); SODIUM 134 mmol/L (136-145); TCO2 29 mmol/L (25-35)
[2018-08-23] MEDS: DEPAKOTE ER PO SCH (09:06)
[2018-08-23] MEDS: FISH OIL CONCENTRATE PO SCH (09:06)
[2018-08-23] MEDS: FOLIC ACID PO SCH (09:07)
[2018-08-23] MEDS: NORVASC PO SCH (09:07)
[2018-08-23] MEDS: LASIX PO SCH ×2 (09:07→20:26)
[2018-08-23] MEDS: KEPPRA PO SCH ×2 (09:07→20:26)
[2018-08-23] MEDS: FLOMAX PO SCH (09:07)
[2018-08-23] MEDS: ASPIRIN PO SCH (09:07)
[2018-08-23] MEDS: CELEXA PO SCH (09:07)
[2018-08-23] MEDS: ROCEPHIN 1 GM in NS 50 ML IV SCH (14:29)
[2018-08-23] MEDS: LOVENOX SUBQ SCH (17:42)
[2018-08-23 18:08] LABS: AGAP 10; BUN 11 mg/dL (8-22); CALCIUM 9.2 mg/dL (8.8-10.2); CHLORIDE 96 mmol/L (98-107); COSMO 272; CREATININE 0.7 mg/dL (0.7-1.2); ESTIMATED GFR > 60; GLUCOSE 139 mg/dL (70-104); POTASSIUM 3.5 mmol/L (3.5-5.1); SODIUM 135 mmol/L (136-145); TCO2 29 mmol/L (25-35)
--- NOTE | 2018-08-23 19:12 | PROGRESS NOTE ---
DATE: 08/23/2018 SUBJECTIVE: The patient is still having a lot of pain with his arm. OBJECTIVE: Vital Signs: Blood pressure 132/66, heart rate of 77, respiratory rate of 18, temperature 97.4. Cardiovascular: Regular rate and rhythm. Pulmonary: Bilateral breath sounds clear to auscultation. Gastrointestinal: Soft, nontender, nondistended. Bowel sounds are positive. LABORATORY DATA: White count is 5, hemoglobin and hematocrit 12 and 36, platelets 328,000. Basic was normal. PROBLEM LIST: 1. Left humeral fracture. He is getting PT, pain control, but he is just not working with PT. He refuses. But he insists that he is going to go home, but he has not been out of bed. So, it is unclear what his activity level is. His plan is for his sister to take care of him with home health, but I explained that would not be admitted to Medicare unfortunately for him, so it is unclear exactly what we are going to end up processing with. 2. Hypertension, is stable currently. Continue his regular medications. 3. Enterobacter cloacae. He is on Rocephin. We will continue that for the time being. 4. Disposition: Plan is we will get a PT evaluation, at least one. I will be there and see how he does, and then get a better sense of if there is safety for discharge for him, but, again, he is very adamant about refusing any other discharge options. cc: West De Leon MD
[2018-08-23] MEDS: LIPITOR PO SCH (20:26)
[2018-08-23] MEDS: XALATAN 0.005% OPH SOLN BOTH EYES SCH (20:26)
[2018-08-24] MEDS: NORCO-5 PO PRN ×3 (05:19→22:56)
[2018-08-24] MEDS: PRILOSEC PO SCH (06:12)
[2018-08-24 07:50] LABS: AGAP 11; BUN 10 mg/dL (8-22); CALCIUM 9.3 mg/dL (8.8-10.2); CHLORIDE 91 mmol/L (98-107); COSMO 263; CREATININE 0.7 mg/dL (0.7-1.2); ESTIMATED GFR > 60; GLUCOSE 94 mg/dL (70-104); POTASSIUM 3.3 mmol/L (3.5-5.1); SODIUM 132 mmol/L (136-145); TCO2 30 mmol/L (25-35)
[2018-08-24 07:53] LABS: BASO# 0.02 X1000 (0.0-0.2); BASO% 0.4 % (0.0-0.8); EOS# 0.08 X1000 (0.0-0.7); EOS% 1.5 % (0.0-10.0); HEMOGLOBIN 11.7 g/dL (14.0-18.0); IMM GRAN# 0.01 X1000 (0.0-0.04); IMM GRAN% 0.2 % (0.0-0.5); LYMPH# 2.92 X1000 (1.2-3.4); MCH 26.7 PG (27-31); MCHC 34.4 g/dL (33-37); MCV 77.6 FL (81-99); MONO# 0.36 X1000 (0.11-0.59); MONO% 6.8 % (1.7-9.3); MPV 10.7 FL (7.4-10.4); NEUT# 1.92 X1000 (1.4-6.5); NEUT% 36.1 % (42.2-75.2); PLT 360 X1000 (130-400); RBC 4.38 XMIL (4.7-6.1); RDW 14.5 % (11.5-14.5); WBC 5.31 X1000 (4.8-10.8)
[2018-08-24] MEDS: NORVASC PO SCH (09:37)
[2018-08-24] MEDS: FISH OIL CONCENTRATE PO SCH (09:37)
[2018-08-24] MEDS: CELEXA PO SCH (09:37)
[2018-08-24] MEDS: KEPPRA PO SCH ×2 (09:37→22:57)
[2018-08-24] MEDS: LASIX PO SCH ×2 (09:37→22:56)
[2018-08-24] MEDS: DEPAKOTE ER PO SCH (09:37)
[2018-08-24] MEDS: FOLIC ACID PO SCH (09:38)
[2018-08-24] MEDS: ASPIRIN PO SCH (09:38)
[2018-08-24] MEDS: FLOMAX PO SCH (09:38)
[2018-08-24] MEDS ORDERED: KLOR-CON PO ONE (10:11)
[2018-08-24] MEDS: ROCEPHIN 1 GM in NS 50 ML IV SCH (14:22)
--- NOTE | 2018-08-24 17:00 | PROGRESS NOTE ---
DATE: 08/24/2018 SUBJECTIVE: The patient has no focal complaints. OBJECTIVE: Blood pressure 146/64, heart rate 72, respiratory rate 16, and temperature 97.9 degrees.Cardiovascular: Regular rate and rhythm. Pulmonary: Bilateral breath sounds. Clear to auscultation. GI: Soft, nontender, and nondistended. Bowel sounds are positive. PROBLEM LIST: 1. Left humeral fracture. We will continue PT. Pain control. Fortunately, patient has been convinced that he really is unable to take care of himself or depend on family to take care of himself at this point until he gets a bit stronger, and he is acquiesced to go to rehab for a little bit and see how he does. 2. Hypertension is stable currently on current medications. 3. Enterobacter cloacae UTI. He is currently on Rocephin which he has been on since the day 6. 4. Disposition: Planning for rehab when bed is available. We can easily switch him to Omnicef or Ceftin. cc: West De Leon MD
[2018-08-24] MEDS: LOVENOX SUBQ SCH (17:51)
[2018-08-24 21:56] LABS: OCCULT BLOOD 1 NEGATIVE (NEGATIVE)
[2018-08-24] MEDS: LIPITOR PO SCH (22:56)
[2018-08-24] MEDS: XALATAN 0.005% OPH SOLN BOTH EYES SCH (23:00)
[2018-08-25] MEDS: NORCO-5 PO PRN ×4 (03:28→20:47)
--- NOTE | 2018-08-25 05:44 | EKG Report ---
Test Performed on : 08/25/2018 03:24:41 AM Test Reason : CP Blood Pressure : / mmHG Vent. Rate : 071 BPM Atrial Rate : 071 BPM P-R Int : 160 ms QRS Dur : 086 ms QT Int : 430 ms P-R-T Axes : 063 065 258 degrees QTc Int : 467 ms Normal sinus rhythm. Voltage criteria for left ventricular hypertrophy Anteroseptal infarct (cited on or before 03-JUN-2009) T wave abnormality, consider inferolateral ischemia Abnormal ECG When compared with ECG of 18-AUG-2018 13:45, (Unconfirmed) T wave inversion more evident in Inferior leads Confirmed by Isaías Sharma MD ([id number]) on 08/28/2018 9:47:15 AM
[2018-08-25] MEDS: PRILOSEC PO SCH (06:46)
[2018-08-25] MEDS: NORVASC PO SCH (08:57)
[2018-08-25] MEDS: LASIX PO SCH ×2 (08:57→20:47)
[2018-08-25] MEDS: FLOMAX PO SCH (08:57)
[2018-08-25] MEDS: FISH OIL CONCENTRATE PO SCH (08:57)
[2018-08-25] MEDS: FOLIC ACID PO SCH (08:58)
[2018-08-25] MEDS: CELEXA PO SCH (08:58)
[2018-08-25] MEDS: KEPPRA PO SCH ×2 (08:58→20:47)
[2018-08-25] MEDS: DEPAKOTE ER PO SCH (08:58)
[2018-08-25] MEDS: ASPIRIN PO SCH (08:58)
[2018-08-25] MEDS: ROCEPHIN 1 GM in NS 50 ML IV SCH (14:12)
--- NOTE | 2018-08-25 16:15 | PROGRESS NOTE ---
DATE: 08/25/2018 SUBJECTIVE: Patient has no focal complaints. OBJECTIVE: Blood pressure 138/59, heart rate 66, respiratory rate 18, and temperature 97.3 degrees.Cardiovascular: Regular rate and rhythm. Pulmonary: Bilateral breath sounds. Clear to auscultation. GI: Soft, nontender, and nondistended. Bowel sounds are positive. PROBLEM LIST: 1. Left humeral fracture. His shoulder is in a sling. We are just really kind of doing conservative measures. We are looking at rehab options with the [place]. The problem is he will not participate in any physical therapy here so I cannot get a sense of what his functional status is. He does have some decubitus ulcers. I am thinking he has got longstanding weakness. 2. Hypertension is stable on his current medications. 3. Enterobacter cloacae UTI. He is on Rocephin. This will be day 7. DISPOSITION: Looking at rehab bed if possible. Hopefully in the next couple of days, but [facility], and we will have to work with that system to get him placed so we will just kind of have to see how he does. cc: West De Leon MD
[2018-08-25] MEDS: LOVENOX SUBQ SCH (18:33)
[2018-08-25] MEDS: LIPITOR PO SCH (20:47)
[2018-08-25] MEDS: XALATAN 0.005% OPH SOLN BOTH EYES SCH (20:49)
[2018-08-26] MEDS: NORCO-5 PO PRN ×4 (01:09→20:41)
[2018-08-26 06:44] LABS: HEMOGLOBIN A1C 5.2 % (4.8-6.0)
[2018-08-26] MEDS: PRILOSEC PO SCH (06:47)
[2018-08-26 07:01] LABS: AGAP 10; BUN 11 mg/dL (8-22); CALCIUM 9.4 mg/dL (8.8-10.2); CHLORIDE 92 mmol/L (98-107); COSMO 263; CREATININE 0.8 mg/dL (0.7-1.2); ESTIMATED GFR > 60; GLUCOSE 88 mg/dL (70-104); POTASSIUM 4.2 mmol/L (3.5-5.1); SODIUM 132 mmol/L (136-145); TCO2 30 mmol/L (25-35)
[2018-08-26] MEDS: DEPAKOTE ER PO SCH (08:54)
[2018-08-26] MEDS: NORVASC PO SCH (08:54)
[2018-08-26] MEDS: KEPPRA PO SCH ×2 (08:54→20:41)
[2018-08-26] MEDS: FISH OIL CONCENTRATE PO SCH (08:54)
[2018-08-26] MEDS: CELEXA PO SCH (08:55)
[2018-08-26] MEDS: FLOMAX PO SCH (08:55)
[2018-08-26] MEDS: LASIX PO SCH ×2 (08:55→20:41)
[2018-08-26] MEDS: FOLIC ACID PO SCH (08:55)
[2018-08-26] MEDS: ASPIRIN PO SCH (08:55)
[2018-08-26] MEDS: ROCEPHIN 1 GM in NS 50 ML IV SCH (14:46)
[2018-08-26] MEDS: LOVENOX SUBQ SCH (17:46)
[2018-08-26] MEDS: LIDODERM TOP SCH (18:02)
[2018-08-26] MEDS: LIPITOR PO SCH (20:41)
[2018-08-26] MEDS: XALATAN 0.005% OPH SOLN BOTH EYES SCH (20:41)
--- NOTE | 2018-08-26 21:11 | PROGRESS NOTE ---
DATE: 08/26/2018 SUBJECTIVE: The patient has no major complaints. He has his sling off. He says it is difficult for him to sleep with it on. We discussed the importance of compliance or he will have a non aligned humerus and possibly a pseudoarthrosis, but he is very difficult to get to agree to certain points if he does not agree with them personally, I guess. OBJECTIVE: 147/63, heart rate 76, respiratory rate 16.Cardiovascular: Regular rate and rhythm. Pulmonary: Bilateral breath sounds clear to auscultation. GI: Soft, nontender, nondistended. Bowel sounds are positive. LABORATORY DATA: Sodium 132, otherwise negative. PROBLEM LIST: 1. Left humeral fracture. Nonsurgical management. We will continue pain control and see how he does. He refuses really any other specific treatments. We will see disposition waiting [facility]. 2. Enterobacter UTI. Continue on Rocephin day 8. I think we can probably stop that as well. 3. Hypertension appears to be stable. cc: West De Leon MD
[2018-08-27] MEDS: NORCO-5 PO PRN ×5 (00:40→21:52)
[2018-08-27] MEDS: PRILOSEC PO SCH (06:04)
[2018-08-27] MEDS: LIDODERM TOP SCH (09:34)
[2018-08-27] MEDS: KEPPRA PO SCH ×2 (09:35→21:53)
[2018-08-27] MEDS: FLOMAX PO SCH (09:35)
[2018-08-27] MEDS: CELEXA PO SCH (09:35)
[2018-08-27] MEDS: ASPIRIN PO SCH (09:35)
[2018-08-27] MEDS: FISH OIL CONCENTRATE PO SCH (09:35)
[2018-08-27] MEDS: DEPAKOTE ER PO SCH (09:35)
[2018-08-27] MEDS: FOLIC ACID PO SCH (09:35)
[2018-08-27] MEDS: LASIX PO SCH ×2 (09:35→21:53)
[2018-08-27] MEDS: NORVASC PO SCH (09:35)
[2018-08-27] MEDS: LOVENOX SUBQ SCH (17:06)
[2018-08-27] MEDS: LIPITOR PO SCH (21:52)
[2018-08-27] MEDS: XALATAN 0.005% OPH SOLN BOTH EYES SCH (21:54)
--- NOTE | 2018-08-28 00:16 | PROGRESS NOTE ---
DATE: 08/27/2018 SUBJECTIVE: Patient has no focal complaints. OBJECTIVE: Blood pressure 129/60, heart rate of 75, respiratory rate of 16, temperature 98.6 degrees, 98% on room air.Cardiovascular: Regular rate and rhythm. Pulmonary: Bilateral breath sounds. Clear to auscultation. GI: Soft, nontender, nondistended. Bowel sounds are positive. LABORATORY DATA: Sodium is 132, otherwise unremarkable. Those were yesterday's labs. PROBLEM LIST: 1. Left humeral fracture. We are going to continue PT, pain control. He is not really participating in much physical therapy which makes it difficult. He is also kind of refusing to wear his brace which also makes things difficult and with much pressing he just basically shuts down and does not answer any questions or he gets belligerent. He has kind of pushed off physical therapy several times. 2. Seizure disorder, appears to be controlled on Keppra. 3. Psychiatric issues. He is not sure what his baseline issue is. He definitely has some confrontational issues may be related to his strokes. He is on Depakote so we will continue to monitor. DISPOSITION: [facility] We will continue to follow. cc: West De Leon MD
[2018-08-28] MEDS: NORCO-5 PO PRN ×4 (02:06→20:17)
[2018-08-28] MEDS: PRILOSEC PO SCH (06:46)
[2018-08-28] MEDS: LIDODERM TOP SCH (08:47)
[2018-08-28] MEDS: FOLIC ACID PO SCH (08:48)
[2018-08-28] MEDS: FISH OIL CONCENTRATE PO SCH (08:48)
[2018-08-28] MEDS: CELEXA PO SCH (08:48)
[2018-08-28] MEDS: NORVASC PO SCH (08:48)
[2018-08-28] MEDS: ASPIRIN PO SCH (08:48)
[2018-08-28] MEDS: LASIX PO SCH ×2 (08:48→20:18)
[2018-08-28] MEDS: KEPPRA PO SCH ×2 (08:49→20:18)
[2018-08-28] MEDS: DEPAKOTE ER PO SCH (08:49)
[2018-08-28] MEDS: FLOMAX PO SCH (09:30)
--- NOTE | 2018-08-28 18:35 | PROGRESS NOTE ---
DATE: 08/28/2018 SUBJECTIVE: Patient has no focal complaints. OBJECTIVE: Blood pressure 140/60, heart rate 75, respiratory rate of 18, temperature 98.6 degrees, 100% on room air.Cardiovascular: Regular rate and rhythm. Pulmonary: Bilateral breath sounds. Clear to auscultation. GI: Soft, nontender, nondistended. Bowel sounds are positive. LABORATORY DATA: Sodium is 132, otherwise negative. That was a couple days ago though. PROBLEM LIST: 1. Left humeral fracture. Fortunately he really does not stay in his sling because he says it hurts which is a interesting statement. We discussed that he had a humeral fracture through and through and that it would hurt and he has pain medication but it would not heal properly if he did not get splinted properly. I encouraged him to use the splint. He is also not participating PT very much, do not know exactly his exercise tolerance but. 2. Seizure disorder controlled on Keppra. 3. I am not sure this is behavioral. His medicines have not been updated. 4. Disposition. We are working on rehab at the [place]. He does not have a home situation at this point that will be conducive to him not falling or injuring himself. He is legally blind and then additionally he has not been up in the hospital this whole time so we will continue to follow closely. cc: West De Leon MD
[2018-08-28] MEDS: LOVENOX SUBQ SCH (18:44)
[2018-08-28] MEDS: LIPITOR PO SCH (20:19)
[2018-08-28] MEDS: XALATAN 0.005% OPH SOLN BOTH EYES SCH (20:19)
[2018-08-29] MEDS: NORCO-5 PO PRN ×3 (00:26→10:03)
[2018-08-29] MEDS: PRILOSEC PO SCH ×2 (04:44→06:38)
[2018-08-29 07:26] LABS: AGAP 10; BASO# 0.04 X1000 (0.0-0.2); BASO% 0.8 % (0.0-0.8); BUN 15 mg/dL (8-22); CHLORIDE 98 mmol/L (98-107); COSMO 273; CREATININE 0.7 mg/dL (0.7-1.2); EOS# 0.12 X1000 (0.0-0.7); EOS% 2.3 % (0.0-10.0); ESTIMATED GFR > 60; GLUCOSE 98 mg/dL (70-104); HEMATOCRIT 33.4 % (42.0-52.0); HEMOGLOBIN 11.7 g/dL (14.0-18.0); IMM GRAN# 0.01 X1000 (0.0-0.04); IMM GRAN% 0.2 % (0.0-0.5); LYMPH# 3.11 X1000 (1.2-3.4); MCH 27.3 PG (27-31); MONO# 0.28 X1000 (0.11-0.59); MONO% 5.4 % (1.7-9.3); MPV 10.1 FL (7.4-10.4); NEUT# 1.62 X1000 (1.4-6.5); NEUT% 31.3 % (42.2-75.2); PLT 390 X1000 (130-400); RBC 4.28 XMIL (4.7-6.1); RDW 14.2 % (11.5-14.5); SODIUM 136 mmol/L (136-145); TCO2 28 mmol/L (25-35); WBC 5.18 X1000 (4.8-10.8)
[2018-08-29] MEDS: FISH OIL CONCENTRATE PO SCH (10:03)
[2018-08-29] MEDS: CELEXA PO SCH (10:03)
[2018-08-29] MEDS: KEPPRA PO SCH ×2 (10:03→20:09)
[2018-08-29] MEDS: DEPAKOTE ER PO SCH (10:04)
[2018-08-29] MEDS: FLOMAX PO SCH (10:04)
[2018-08-29] MEDS: FOLIC ACID PO SCH (10:04)
[2018-08-29] MEDS: NORVASC PO SCH (10:04)
[2018-08-29] MEDS: ASPIRIN PO SCH (10:04)
[2018-08-29] MEDS: LASIX PO SCH ×2 (10:04→20:09)
[2018-08-29] MEDS: LIDODERM TOP SCH (10:05)
[2018-08-29] MEDS: LOVENOX SUBQ SCH (17:13)
[2018-08-29] MEDS: LIPITOR PO SCH (20:09)
--- NOTE | 2018-08-29 22:35 | PROGRESS NOTE ---
DATE: 08/29/2018 SUBJECTIVE: The patient has no new complaints. Unfortunately he has complaints about most everything from food to bed to room temperature to staffing to lighting even though he can turn lights on and off. He has been quite problematic at times for the staff as he is frequently asking them for assistance and then refusing to allow any assistance to occur. PHYSICAL: Temperature 95, pulse 83, respiratory 20, BP 135/63.General: Patient is in no current respiratory distress lying flatly in bed. HEENT: Normocephalic. Neck: Supple. CV: Regular rate . Chest: Clear . Abdomen: Soft Extremities: Moves all extremities with exception of left upper extremity well. Left upper extremity is fractured however he continues to refuse any physical therapy, continues to refuse to wear any splinting or anything that we would increase pain control. Neuro: No focal changes. ASSESSMENT: 1. Left humeral fracture . 2. Seizure disorder. 3. Anemia of chronic disease. PLAN: Will continue patient in the hospital, [facility]. cc: Terrell Hdz MD MTDD
[2018-08-29] MEDS: XALATAN 0.005% OPH SOLN BOTH EYES SCH (22:49)
[2018-08-30] MEDS: NORCO-5 PO PRN ×5 (00:32→21:53)
[2018-08-30] MEDS: PRILOSEC PO SCH (06:02)
[2018-08-30] MEDS: NORVASC PO SCH (10:51)
[2018-08-30] MEDS: KEPPRA PO SCH ×2 (10:52→21:53)
[2018-08-30] MEDS: DEPAKOTE ER PO SCH (10:52)
[2018-08-30] MEDS: FOLIC ACID PO SCH (10:52)
[2018-08-30] MEDS: LASIX PO SCH ×2 (10:52→21:53)
[2018-08-30] MEDS: FISH OIL CONCENTRATE PO SCH (10:52)
[2018-08-30] MEDS: FLOMAX PO SCH (10:53)
[2018-08-30] MEDS: LIDODERM TOP SCH (10:53)
[2018-08-30] MEDS: CELEXA PO SCH (10:53)
[2018-08-30] MEDS: ASPIRIN PO SCH (10:53)
[2018-08-30] MEDS: LOVENOX SUBQ SCH (17:33)
[2018-08-30] MEDS: LIPITOR PO SCH (21:53)
[2018-08-30] MEDS: XALATAN 0.005% OPH SOLN BOTH EYES SCH (21:54)
--- NOTE | 2018-08-30 22:27 | PROGRESS NOTE ---
DATE: 08/30/2018 SUBJECTIVE: No new complaints, patient actually was a little bit more calm this morning than he was yesterday. PHYSICAL: Temperature 97, pulse 75, BP 135/76.General: Patient is a alert male who is unpleasant most of the time. He is constantly fussing the staff about pretty much everything. Vital Signs: Reviewed. He is in no respiratory distress. Neck: Supple. CV: Regular rate. Chest: Clear. Abdomen: Soft. Extremities: Moves all extremities with the exception of left upper extremity which is painful movement . ASSESSMENT: 1. Left humeral fracture. 2. Seizure disorder. PLAN: Will continue patient on hospital hopefully transition to rehab over the next few days and will follow. No changes currently on his medications. cc: Terrell Hdz MD
[2018-08-31] MEDS: NORCO-5 PO PRN ×3 (02:00→21:20)
[2018-08-31] MEDS: PRILOSEC PO SCH (06:07)
[2018-08-31] MEDS: FLOMAX PO SCH (07:59)
[2018-08-31] MEDS: CELEXA PO SCH (07:59)
[2018-08-31] MEDS: DEPAKOTE ER PO SCH (07:59)
[2018-08-31] MEDS: ASPIRIN PO SCH (07:59)
[2018-08-31] MEDS: FISH OIL CONCENTRATE PO SCH (07:59)
[2018-08-31] MEDS: LASIX PO SCH ×2 (08:00→21:20)
[2018-08-31] MEDS: NORVASC PO SCH (08:00)
[2018-08-31] MEDS: LIDODERM TOP SCH (08:00)
[2018-08-31] MEDS: FOLIC ACID PO SCH (08:00)
[2018-08-31] MEDS: KEPPRA PO SCH ×2 (08:00→21:20)
[2018-08-31] MEDS: LOVENOX SUBQ SCH (17:28)
[2018-08-31] MEDS: LIPITOR PO SCH (21:20)
[2018-08-31] MEDS: XALATAN 0.005% OPH SOLN BOTH EYES SCH (21:21)
--- NOTE | 2018-09-01 00:40 | PROGRESS NOTE ---
DATE: 08/31/2018 SUBJECTIVE: Patient has no new complaints today. PHYSICAL EXAMINATION: Temperature 97.9 degrees, pulse 71, respiratory 18, BP 126/69.General: Patient is awake, alert. He is in no distress. HEENT: Normocephalic. Neck: Supple. CARDIOVASCULAR: Regular rate. Chest: Clear. Abdomen: Soft. Extremities: He has no new changes. Still has limited motion of his left upper extremity due to recent fracture. ASSESSMENT: 1. Left humeral fracture. 2. Seizure disorder, on Keppra. 3. Hyponatremia, resolved. PLAN: We will continue to work with [facility] [employer] [facility] trying [facility]. We will continue to follow. Further orders as needed. cc: Terrell Hdz MD
[2018-09-01] MEDS: NORCO-5 PO PRN ×3 (02:18→13:51)
[2018-09-01] MEDS: PRILOSEC PO SCH (06:30)
[2018-09-01 06:39] LABS: HEMATOCRIT 33.3 % (42.0-52.0); HEMOGLOBIN 11.8 g/dL (14.0-18.0); MCH 27.4 PG (27-31); MCHC 35.4 g/dL (33-37); MCV 77.3 FL (81-99); MPV 9.5 FL (7.4-10.4); RBC 4.31 XMIL (4.7-6.1); RDW 14.4 % (11.5-14.5); WBC 6.59 X1000 (4.8-10.8)
[2018-09-01 07:16] LABS: AGAP 9; BUN 13 mg/dL (8-22); CALCIUM 9.2 mg/dL (8.8-10.2); CHLORIDE 99 mmol/L (98-107); COSMO 276; CREATININE 0.6 mg/dL (0.7-1.2); ESTIMATED GFR > 60; GLUCOSE 105 mg/dL (70-104); POTASSIUM 3.6 mmol/L (3.5-5.1); SODIUM 138 mmol/L (136-145); TCO2 29 mmol/L (25-35)
[2018-09-01] MEDS: NORVASC PO SCH (09:05)
[2018-09-01] MEDS: LASIX PO SCH ×2 (09:05→19:57)
[2018-09-01] MEDS: FLOMAX PO SCH (09:05)
[2018-09-01] MEDS: CELEXA PO SCH (09:05)
[2018-09-01] MEDS: DEPAKOTE ER PO SCH (09:05)
[2018-09-01] MEDS: KEPPRA PO SCH ×2 (09:05→19:57)
[2018-09-01] MEDS: FISH OIL CONCENTRATE PO SCH (09:05)
[2018-09-01] MEDS: ASPIRIN PO SCH (09:05)
[2018-09-01] MEDS: FOLIC ACID PO SCH (09:05)
[2018-09-01] MEDS: LIDODERM TOP SCH (09:06)
[2018-09-01] MEDS: LOVENOX SUBQ SCH (17:13)
[2018-09-01] MEDS: LIPITOR PO SCH (19:58)
[2018-09-01] MEDS: XALATAN 0.005% OPH SOLN BOTH EYES SCH (19:58)
--- NOTE | 2018-09-02 00:09 | PROGRESS NOTE ---
DATE: 09/01/2018 SUBJECTIVE: The patient has no new complaints, but states that his arm still hurts. Hurts to move. PHYSICAL EXAMINATION: Vital Signs: Temperature 97.8, pulse 72, respiratory rate 19, blood pressure 118/58. General: The patient is in no current respiratory distress. He is awake, alert. HEENT: Normocephalic. Neck: Supple. Cardiovascular: Regular rate. Chest: Clear, nonlabored. Abdomen: Soft. Extremities: Moves all extremities, with the exception of the left upper extremity, which is currently in a brace. ASSESSMENT: 1. Left humeral fracture. 2. Seizure disorder. 3. Others. PLAN: Will continue patient in the hospital. Nurse Ob is working on transitioning him to [facility]. We will continue to follow. cc: Terrell Hdz MD
[2018-09-02] MEDS: XALATAN 0.005% OPH SOLN BOTH EYES SCH ×2 (04:07→20:05)
[2018-09-02] MEDS: KEPPRA PO SCH ×3 (04:08→20:05)
[2018-09-02] MEDS: LASIX PO SCH ×3 (04:09→20:05)
[2018-09-02 06:06] LABS: HEMATOCRIT 35.2 % (42.0-52.0); HEMOGLOBIN 12.3 g/dL (14.0-18.0); MCHC 34.9 g/dL (33-37); MCV 77.2 FL (81-99); MPV 9.9 FL (7.4-10.4); RBC 4.56 XMIL (4.7-6.1); RDW 14.6 % (11.5-14.5); WBC 7.02 X1000 (4.8-10.8)
[2018-09-02] MEDS: NORCO-5 PO PRN ×2 (06:08→14:49)
[2018-09-02] MEDS: PRILOSEC PO SCH (06:08)
[2018-09-02 06:36] LABS: AGAP 10; BUN 15 mg/dL (8-22); CALCIUM 9.7 mg/dL (8.8-10.2); CHLORIDE 98 mmol/L (98-107); COSMO 282; CREATININE 0.7 mg/dL (0.7-1.2); ESTIMATED GFR > 60; GLUCOSE 203 mg/dL (70-104); POTASSIUM 3.5 mmol/L (3.5-5.1); SODIUM 138 mmol/L (136-145); TCO2 30 mmol/L (25-35)
[2018-09-02] MEDS: LIDODERM TOP SCH (09:33)
[2018-09-02] MEDS: ASPIRIN PO SCH (09:33)
[2018-09-02] MEDS: NORVASC PO SCH (09:33)
[2018-09-02] MEDS: FISH OIL CONCENTRATE PO SCH (09:34)
[2018-09-02] MEDS: DEPAKOTE ER PO SCH (09:34)
[2018-09-02] MEDS: FLOMAX PO SCH (09:34)
[2018-09-02] MEDS: FOLIC ACID PO SCH (09:34)
[2018-09-02] MEDS: CELEXA PO SCH (09:34)
[2018-09-02] MEDS: LOVENOX SUBQ SCH (19:00)
[2018-09-02] MEDS: LIPITOR PO SCH (20:05)
[2018-09-03] MEDS: NORCO-5 PO PRN ×3 (00:52→09:40)
--- NOTE | 2018-09-03 02:51 | PROGRESS NOTE ---
DATE: 09/02/2018 SUBJECTIVE: The patient continues to remain quite unpleasant at times. He has no new complaints medically. PHYSICAL EXAMINATION: Vital Signs: Temperature 98.7, pulse 85, respiratory rate 20, blood pressure 150/69. General: The patient is in no current respiratory distress. He is stable, lying in bed. HEENT: Normocephalic. Neck: Supple. Cardiovascular: Regular rate. Chest: Clear, nonlabored. Abdomen: Soft. Extremities: Moves all extremities, with the exception of the left upper extremity. ASSESSMENT: 1. Left humeral fracture. 2. Seizure disorder. 3. Hyponatremia, resolved. 4. Mild anemia. 5. Blindness. PLAN: We will continue patient in the hospital. We will continue physical therapy as he allows it. Hopefully, to rehab soon. cc: Terrell Hdz MD
[2018-09-03] MEDS: PRILOSEC PO SCH (04:00)
[2018-09-03] MEDS: ASPIRIN PO SCH (09:15)
[2018-09-03] MEDS: FLOMAX PO SCH (09:40)
[2018-09-03] MEDS: DEPAKOTE ER PO SCH (09:40)
[2018-09-03] MEDS: LASIX PO SCH ×2 (09:40→20:29)
[2018-09-03] MEDS: FISH OIL CONCENTRATE PO SCH (09:40)
[2018-09-03] MEDS: CELEXA PO SCH (09:40)
[2018-09-03] MEDS: LIDODERM TOP SCH (09:40)
[2018-09-03] MEDS: KEPPRA PO SCH ×2 (09:40→20:29)
[2018-09-03] MEDS: FOLIC ACID PO SCH (09:40)
[2018-09-03] MEDS: NORVASC PO SCH (09:40)
[2018-09-03] MEDS: COLACE PO SCH (13:23)
[2018-09-03] MEDS: LOVENOX SUBQ SCH (18:27)
[2018-09-03] MEDS: XALATAN 0.005% OPH SOLN BOTH EYES SCH (20:29)
[2018-09-03] MEDS: LIPITOR PO SCH (20:29)
[2018-09-03] MEDS: ATIVAN IV PRN (21:07)
--- NOTE | 2018-09-04 00:19 | PROGRESS NOTE ---
DATE: 09/03/2018 SUBJECTIVE: Patient has no new complaints. PHYSICAL EXAMINATION: Vital Signs: Temperature 97.4 degrees, pulse 72, respiratory 20, BP 128/71. HEENT: Normocephalic. Neck: Supple. Cardiovascular: Regular rate. Chest: Clear. Abdomen: Soft. Extremities: No focal changes. Moves all extremities. Still has pain in the left upper extremity. Neurologic: Awake, alert, oriented. ASSESSMENT: 1. Left humeral fracture. 2. Blindness. 3. Seizures. PLAN: We will continue patient in the hospital, continue physical therapy, symptomatic care and we will follow. cc: Terrell Hdz MD
[2018-09-04] MEDS: ATIVAN IV PRN ×2 (01:58→22:14)
[2018-09-04] MEDS: PRILOSEC PO SCH ×2 (07:02→09:22)
[2018-09-04] MEDS: FISH OIL CONCENTRATE PO SCH (09:21)
[2018-09-04] MEDS: NORVASC PO SCH (09:21)
[2018-09-04] MEDS: LIDODERM TOP SCH (09:21)
[2018-09-04] MEDS: LASIX PO SCH ×2 (09:21→21:13)
[2018-09-04] MEDS: FLOMAX PO SCH (09:21)
[2018-09-04] MEDS: COLACE PO SCH (09:22)
[2018-09-04] MEDS: NORCO-5 PO PRN ×3 (09:23→19:52)
[2018-09-04] MEDS: ASPIRIN PO SCH (09:23)
[2018-09-04] MEDS: DEPAKOTE ER PO SCH (09:23)
[2018-09-04] MEDS: KEPPRA PO SCH ×2 (09:23→21:12)
[2018-09-04] MEDS: FOLIC ACID PO SCH (09:23)
[2018-09-04] MEDS: CELEXA PO SCH (09:25)
[2018-09-04] MEDS: LOVENOX SUBQ SCH (18:50)
--- NOTE | 2018-09-04 19:23 | PROGRESS NOTE ---
DATE: 09/04/2018 SUBJECTIVE: Patient has no new complaints. PHYSICAL EXAMINATION: Vital Signs: Vital signs reviewed. Temp 97, pulse 88, respiratory 20, BP 137/62. General: Patient lying in bed. He is in no distress. HEENT: Normocephalic. Neck: Supple. Cardiovascular: Regular rate. Chest: Clear. Abdomen: Soft. Extremities: Moves all extremities with the exception of left upper extremity. ASSESSMENT: 1. Left humeral fracture. 2. History of seizures. 3. Others. PLAN: Hopefully patient can transition to [facility] earlier this week. We will continue to follow. cc: Terrell Hdz MD
[2018-09-04] MEDS: XALATAN 0.005% OPH SOLN BOTH EYES SCH (21:12)
[2018-09-04] MEDS: LIPITOR PO SCH (21:13)
[2018-09-05] MEDS: NORCO-5 PO PRN ×2 (02:43→12:35)
[2018-09-05 06:12] LABS: HEMATOCRIT 32.6 % (42.0-52.0); HEMOGLOBIN 11.4 g/dL (14.0-18.0); MCH 27.3 PG (27-31); MPV 9.6 FL (7.4-10.4); RBC 4.18 XMIL (4.7-6.1); RDW 14.9 % (11.5-14.5); WBC 9.06 X1000 (4.8-10.8)
[2018-09-05 06:29] LABS: AGAP 10; ALBUMIN 3.3 g/dL (3.5-5.0); ALKALINE PHOSPHATASE 98 U/L (32-122); BUN 14 mg/dL (8-22); CALCIUM 9.4 mg/dL (8.8-10.2); CHLORIDE 102 mmol/L (98-107); COSMO 281; CREATININE 0.6 mg/dL (0.7-1.2); ESTIMATED GFR > 60; GLUCOSE 186 mg/dL (70-104); GOT 31 U/L (10-34); GPT 52 U/L (10-44); MAGNESIUM 2.2 mg/dL (1.5-2.7); POTASSIUM 3.9 mmol/L (3.5-5.1); SODIUM 138 mmol/L (136-145); TCO2 26 mmol/L (25-35); TOTAL PROTEIN 6.7 g/dL (6.3-8.3)
[2018-09-05] MEDS: PRILOSEC PO SCH (06:39)
[2018-09-05] MEDS: CELEXA PO SCH (08:30)
[2018-09-05] MEDS: ASPIRIN PO SCH (08:30)
[2018-09-05] MEDS: FISH OIL CONCENTRATE PO SCH (08:31)
[2018-09-05] MEDS: FOLIC ACID PO SCH (08:31)
[2018-09-05] MEDS: FLOMAX PO SCH (08:31)
[2018-09-05] MEDS: COLACE PO SCH (08:31)
[2018-09-05] MEDS: DEPAKOTE ER PO SCH (08:31)
[2018-09-05] MEDS: KEPPRA PO SCH ×2 (08:31→23:14)
[2018-09-05] MEDS: NORVASC PO SCH (08:32)
[2018-09-05] MEDS: LASIX PO SCH ×2 (08:32→23:15)
[2018-09-05] MEDS: LIDODERM TOP SCH (08:57)
[2018-09-05] MEDS: LOVENOX SUBQ SCH (17:35)
[2018-09-05] MEDS: XALATAN 0.005% OPH SOLN BOTH EYES SCH (23:14)
[2018-09-05] MEDS: ATIVAN IV PRN (23:14)
[2018-09-05] MEDS: LIPITOR PO SCH (23:15)
[2018-09-06] MEDS: NORCO-5 PO PRN ×3 (02:52→18:23)
[2018-09-06] MEDS: PRILOSEC PO SCH (06:03)
[2018-09-06] MEDS: NORVASC PO SCH (08:23)
[2018-09-06] MEDS: COLACE PO SCH (08:24)
[2018-09-06] MEDS: DEPAKOTE ER PO SCH (08:24)
[2018-09-06] MEDS: FISH OIL CONCENTRATE PO SCH (08:24)
[2018-09-06] MEDS: FLOMAX PO SCH (08:24)
[2018-09-06] MEDS: FOLIC ACID PO SCH (08:24)
[2018-09-06] MEDS: LIDODERM TOP SCH (08:25)
[2018-09-06] MEDS: KEPPRA PO SCH (08:25)
[2018-09-06] MEDS: ASPIRIN PO SCH (08:25)
[2018-09-06] MEDS: CELEXA PO SCH (08:25)
[2018-09-06] MEDS: LASIX PO SCH (08:25)
--- NOTE | 2018-09-06 12:43 | DISCHARGE SUMMARY ---
ADMISSION DATE: 08/18/2018 DISCHARGE DATE: 09/06/2018 DISCHARGE ADDENDUM: PHYSICAL EXAMINATION: General: On the day of discharge, he is laying in bed per usual. No major complaints. Vital signs: Stable. Afebrile. Blood pressure 142/63, heart rate 82, afebrile. Saturations are 96% on room air. Cardiovascular: Regular rate and rhythm. Pulmonary: Bilateral breath sounds. Clear to auscultation. GI: Soft, nontender, nondistended. Bowel sounds are positive. LABORATORY DATA: Unremarkable. No white count. Hemoglobin and hematocrit is stable. HOSPITAL COURSE: Briefly this is a 62-year-old gentleman, left humeral fracture, history of seizures. He is pretty stable, not very compliant. He has difficulty with PT. He has difficulty keeping his sling on. Overall, he seems to be doing better. Discharge condition is stable. He is hopefully going to go to rehab today. This is a [id number] encounter note with EMILY Villalpando. cc: West De Leon MD
--- NOTE | 2018-09-06 13:53 | DISCHARGE SUMMARY ---
ADMISSION DATE: 08/18/2018 DISCHARGE DATE: Patient initially presented with: DISCHARGE DIAGNOSES: 1. Left humeral fractures. 2. History of cerebrovascular accident (CVA). 3. Coronary artery disease (CAD). 4. Seizure disorder. 5. Polysubstance abuse. 6. There are some psychiatric issues, I think. 7. Depression. HOSPITAL COURSE: In any case he came in with syncope. He sustained a displaced fracture of his humerus. Orthopedics was consulted, I believe, and they recommended to immobilize with a sling. Chest CT showed some scarring, but no other major issues. He had a very slow course. His workup for syncope was unremarkable, although we did not really do an echo or carotid, but in any case, the patient stabilized. It was very kind of difficult for him to participate in his care. He refused PT intermittently. He refused to keep his arm in a sling. He did have an Enterobacter cloacae UTI, which was sensitive to Rocephin, and for which he completed a 7-day course. Plan was to observe and then initially he wanted to go home, but he would not really move or get out of bed or do much for himself. He is legally blind, and now he has a left humeral fracture and already had difficulty ambulating before that so he acquiesced to go to rehabilitation. [facility], he was able to be [facility] in rehabilitation on the . DISCHARGE MEDICATIONS: 1. Aspirin 81 daily. 2. Celexa 20 daily. 3. Depakote 500 daily. 4. Xalatan 0.005% both eyes at bedtime. 5. Fish oil 1 g daily. 6. Lipitor 40 daily. 7. Norvasc 10 daily. 8. Folic acid 1 daily. 9. Lasix 40 b.i.d. 10. [place] 1 p.o. q.6 h. p.r.n. pain. 11. Keppra 500 b.i.d. 12. Lidoderm patch. 13. Prilosec 40. 14. Flomax 0.4 daily. DISCHARGE CONDITION: Stable. PLAN: We will continue to follow. Plan is to go to rehabilitation today through [facility]. We will continue to monitor. cc: [place] MD [facility]
[2018-09-06 14:37] VITALS: BP 147/70
[2018-09-06] MEDS: LOVENOX SUBQ SCH (17:28)
== END 2018-09-06 18:34 | DRG 563 ==
LOC: P.ED 12:20 → SUATTDRO 16:48 → P.MEDSURG 16:48
PROVIDERS: ATTEND Internal Medicine
CPT/HCPCS: 70450; 71010; 71045; 71250; 73030; 80048; 80053; 80104; 80301; 80305; 81001; 82270; 82607; 82746; 82948; 83036; 83540; 83550; 83605; 83735; 84443; 84484; 85025; 85027; 85610; 85730; 87040; 87077; 87088; 87186; 93005; 93010; 93306; 97161; 97530; 99285; A9270; C8929; G0431; G0434; G0477; J0696; J1200; J1650; J2060; J2270; J2405; J3486; J7030; Q9957; XXXXX

== ENCOUNTER 2019-03-16 02:33 | Observation (INO) ==
[2019-03-16 02:42] LABS: BASO# 0.02 X1000 (0.0-0.2); BASO% 0.3 % (0.0-0.8); EOS# 0.17 X1000 (0.0-0.7); EOS% 2.5 % (0.0-10.0); HEMATOCRIT 44.4 % (42.0-52.0); HEMOGLOBIN 16.6 g/dL (14.0-18.0); IMM GRAN# 0.01 X1000 (0.0-0.04); IMM GRAN% 0.1 % (0.0-0.5); LYMPH# 3.55 X1000 (1.2-3.4); LYMPH% 52.4 % (20.5-51.1); MCH 30.8 PG (27-31); MCHC 37.4 g/dL (33-37); MCV 82.4 FL (81-99); MONO# 0.37 X1000 (0.11-0.59); MONO% 5.5 % (1.7-9.3); MPV 9.8 FL (7.4-10.4); NEUT# 2.65 X1000 (1.4-6.5); NEUT% 39.2 % (42.2-75.2); PLT 227 X1000 (130-400); RBC 5.39 XMIL (4.7-6.1); RDW 13.9 % (11.5-14.5); WBC 6.77 X1000 (4.8-10.8)
--- NOTE | 2019-03-16 02:48 | PROVIDER DOCUMENTATION ---
HPI-Chest Pain - General Chief Complaint: Chest Pain Stated Complaint: CP Time Seen by Provider: 03/16/19 03:15 Source: patient, EMS Allergies/Adverse Reactions: Patient Allergies Allergy/AdvReac Type Severity Reaction Status Date / Time No Known Allergies Allergy Verified 12/02/18 12:06 Home Medications: Home Medication List Medication Instructions Recorded Confirmed Last Taken Type Aspirin 81 mg PO DAILY 05/10/13 08/29/18 08/29/18 09:00 History Tamsulosin [Flomax] 0.4 mg PO DAILY #30 capsule 06/05/15 08/29/18 08/29/18 09:00 Rx ATORVAstatin [Lipitor] 40 mg PO QHS #30 tablet 03/05/16 08/29/18 08/28/18 21:00 Rx Citalopram [Celexa] 20 mg PO DAILY 05/16/16 08/29/18 08/29/18 09:00 History Divalproex Sodium [Depakote ER] 500 mg PO DAILY 05/16/16 08/29/18 08/29/18 09:00 History Latanoprost 0.005% Oph Soln 1 drop BOTH EYES HS 05/16/16 08/29/18 08/28/18 21:00 History [Xalatan 0.005% Oph Soln] [place]-3 Fatty Acids [Fish Oil] 1,000 mg PO DAILY 05/17/16 08/29/18 08/29/18 09:00 History Levetiracetam [Keppra] 500 mg PO BID #0 tablet 05/28/16 08/29/18 08/29/18 09:00 Rx Acetaminophen [Tylenol Extra 2 tab PO BID 04/12/18 08/29/18 06/03/18 History Strength] Furosemide [Lasix] 40 mg PO BID #60 tab 05/08/18 08/29/18 08/29/18 09:00 Rx Amlodipine [Norvasc] 10 mg PO DAILY tablet 08/31/18 Unknown Rx Hydrocodone/APAP 5 mg/325 mg 1 ea PO Q4H PRN PRN #15 tab 08/31/18 Unknown Rx [[place]-5] Lidocaine 5% Patch [Lidoderm] 1 each TOP DAILY patch 08/31/18 Unknown Rx Omeprazole [Prilosec] 40 mg PO DAILY@0700 capsule 08/31/18 Unknown Rx Folic Acid 1 mg PO DAILY tablet 09/06/18 Unknown Rx Potassium Chloride [K-Tab ER] 8 meq PO BID #14 tablet.er 12/02/18 Unknown Rx - History of Present Illness-CP Nature of Presenting Problem: PT PRESENTS TO ED WITH MIDSTERNAL CHEST PAIN ONSET 2300. PT REPORTS HX OF MA X 2 WITH CARDIAC STENTS. PT DENIES N/V/DIAPHORESIS. Location: reports: substernal Quality of Pain: reports: sharp, tightness Severity in ED: moderate Onset/Duration: abrupt, just prior to arrival Timing: improving Context/Activities at Onset: reports: none Modifying Factors: improves with: nothing Associated Symptoms: reports: fatigue. denies: abdominal pain, back pain, diaphoresis Prior Chest Pain/Cardiac Workup: reports: heart attack Similar Symptoms Previously?: Yes Review of Systems - Adult - REVIEW OF SYSTEMS - ADULT Constitutional: denies: fever, fatique Past History - Adult - PAST MEDICAL HISTORY-ADULT Review of Records: reports: Nursing Assessment Review Major Childhood Illnesses: reports: denies history Cardiovascular: reports: CAD, CHF, HTN, hyperlipidemia, MA Respiratory: reports: denies history Gastrointestinal: reports: denies history Obstetrical/Gynecological: reports: denies history Genitourinary: reports: retention, other (BPH) Musculoskeletal: reports: denies history Neurological: reports: CVA, stroke deficits (left sided), Seizures/Epilepsy (seizures) Endocrine/Immune: reports: Diabetes Other Conditions: reports: denies history - PRIOR SURGERIES/PROCEDURES Surgical/Procedure History: reports: cardiac stent, other (abdominal surgery) - PRIOR HOSPITALIZATIONS Prior Hospitalizations: reports: for similar symptoms - IMMUNIZATION STATUS Childhood Immunizations: See Nurse Assessment Flu Vaccine: See Nurse Assessment - FAMILY HISTORY Family History: reviewed, not pertinent Physical Exam-General - PHYSICAL EXAM-ADULT Initial Vital Signs Reviewed: Yes - CONSTITUTIONAL General Appearance: alert, no apparent distress - EYES Eyes: PERRL/EOMI - HEAD, EARS, NOSE, MOUTH & THROAT HENMT: normocephalic/atraumatic, moist mucous membranes, normal ENT inspection - NECK Neck: non-tender, supple - RESPIRATORY Respiratory: chest non-tender, lungs clear, normal breath sounds, no pleuratic chest pain, no respiratory distress, no accessory muscle use - CARDIOVASCULAR Cardiovascular: normal peripheral pulses, regular rate, rhythm, no edema, no gallop, no JVD, no murmur - GASTROINTESTINAL (ABDOMEN) Abdominal Exam: non tender, soft - LYMPHATIC Lymphatic: no adenopathy - MUSCULOSKELETAL Back Exam: normal inspection, no CVA tenderness, no vertebral tenderness Extremity: non-tender, normal gait - NEUROLOGIC Neurologic: grossly normal, no motor/sensory deficits - PSYCHIATRIC Psych/Mental Status: normal mood/affect - HEART Score HEART Score: History: Slightly Suspicious HEART Score: ECG: Non-Specific Repolarization Disturbance/LBBB/PM HEART Score: Age: 45-65 Years HEART Score: Risk Factors for Atherosclerotic Disease: > or = 3 Risk Factors or History of Atherosclerotic Disease HEART Score: Troponin: < or = Normal Limit Total HEART Score:: 4 Progress - PLAN OF CARE/RESULTS Progress/Plan/Lab Results: Vital Signs - 8 hr 03/16/19 02:28 03/16/19 02:46 03/16/19 03:40 Temperature 97.9 F 98.6 F Pulse Rate 66 60 57 L Respiratory Rate 20 20 18 Blood Pressure 138/78 166/81 171/76 O2 Sat by Pulse Oximetry 98 97 98 03/16/19 04:31 Temperature Pulse Rate 53 L Respiratory Rate 19 Blood Pressure 168/78 O2 Sat by Pulse Oximetry 97 Laboratory Results - last 24 hr 03/16/19 03/16/19 03/16/19 02:20 02:20 02:20 WBC 6.77 RBC 5.39 Hgb 16.6 Hct 44.4 MCV 82.4 MCH 30.8 MCHC 37.4 H RDW Std Deviation 13.9 Plt Count 227 MPV 9.8 Immature Gran % (Auto) 0.1 Neut % (Auto) 39.2 L Lymph % (Auto) 52.4 H [place] % (Auto) 5.5 Eos % (Auto) 2.5 Baso % (Auto) 0.3 Immature Gran # (Auto) 0.01 Neut # (Auto) 2.65 Lymph # (Auto) 3.55 H [place] # (Auto) 0.37 Eos # (Auto) 0.17 Baso # (Auto) 0.02 Sodium 143 Potassium 4.1 Chloride 105 Carbon Dioxide 23 L Anion Gap 15 BUN 13 Creatinine 0.8 Estimated GFR/1.73 m2 > 60 BUN/Creatinine Ratio 16 Glucose 82 Calculated Osmolality 284 Calcium 9.0 Total Bilirubin 0.30 AST 30 ALT 28 Alkaline Phosphatase 65 Creatine Kinase 154 Troponin T < 0.010 Total Protein 7.7 Albumin 4.6 Globulin 3.0 Albumin/Globulin Ratio 1.0 Amylase 52 Lipase 28 Orders Category Date Time Status Admit - [facility] Routine AdmDCTranf 03/16/19 03:16 Active Activity - Up Ad Marly ORDERED Care 03/16/19 03:16 Active Saline Loc DIRECTED Care 03/16/19 02:26 Active Z-Document. for Tele Applied ORDERED Care 03/16/19 03:17 Active Heart Healthy Diet Diet 03/16/19 03:17 Active NPO Diet 03/16/19 02:26 Completed CHEST-PORTABLE [RAD] Stat Exams 03/16/19 02:26 Taken AMYLASE [CHEM] Stat Lab 03/16/19 02:20 Completed CBC WITH ELECTRONIC DIFF [HEME] Stat Lab 03/16/19 02:20 Completed CK PROFILE [SP CHEM] Stat Lab 03/16/19 02:20 Completed COMPREHENSIVE METABOLIC PANEL [CHEM] Stat Lab 03/16/19 02:20 Completed LIPASE [CHEM] Stat Lab 03/16/19 02:20 Completed TROPONIN T Q3HR Lab 03/16/19 06:00 Ordered TROPONIN T Q3HR Lab 03/16/19 09:00 Ordered TROPONIN T Stat Lab 03/16/19 02:20 Completed Aspirin Med 03/16/19 09:00 Discontinued 81 mg PO DAILY Morphine Med 03/16/19 03:16 Discontinued 2 mg IV Q2H PRN PRN Ondansetron [Zofran] Med 03/16/19 03:16 Discontinued 4 mg IV Q4H PRN PRN Oxygen Device Routine Oth 03/16/19 03:17 Active Telemetry [OM.EQ] Routine Oth 03/16/19 03:16 Active Transfer/Admit Order [TRANSFER] Routine Transfer 03/16/19 03:19 Completed Result Diagrams: 03/16/19 02:20 03/16/19 02:20 - EKG 1 EKG Interpretation (*Must complete 3 of following elements*): Abnormal Rate: 60 Rhythm: sinus [place]: normal QRS: Q Waves present ST Wave: non-specific ST changes - CONSULTS/PCP/HOSPITALIST Notification #1 *Consult/PCP/Hospitalist*: Dr Hdz Time Discussed: 03:20 Consult Disposition: Admit Departure - Departure Date of Disposition Decision: 03/16/19 Time of Disposition Decision: 03:12 DIAGNOSIS: Chest pain Disposition: ADMITTED INPATIENT 09 Certified Medical Emergency: Emergent Condition: Good - Critical Care Note This patient required my direct & personal management of CC.: No Attestation - Physician/ SPIKE Attestation Patient care was provided by Advanced Practice Provider:: No The physician spent face to face time with patient:: Yes Advanced Practice Provider documentation review:: Supervising physician onsite and consulted in the evaluation and care of this patient. The physician did have a face to face encounter with the patient.
[2019-03-16 02:55] LABS: AGAP 15; ALBUMIN 4.6 g/dL (3.5-5.0); ALKALINE PHOSPHATASE 65 U/L (32-122); AMYLASE 52 U/L (20-200); BUN 13 mg/dL (8-22); CHLORIDE 105 mmol/L (98-107); CK PROFILE 154 U/L (24-204); COSMO 284; CREATININE 0.8 mg/dL (0.7-1.2); ESTIMATED GFR > 60; GLUCOSE 82 mg/dL (70-104); GOT 30 U/L (10-34); GPT 28 U/L (10-44); LIPASE 28 U/L (13-60); POTASSIUM 4.1 mmol/L (3.5-5.1); SODIUM 143 mmol/L (136-145); TCO2 23 mmol/L (25-35); TOTAL PROTEIN 7.7 g/dL (6.3-8.3)
[2019-03-16] MEDS ORDERED: ZOFRAN IV PRN ×2 (03:16→06:05)
[2019-03-16] MEDS ORDERED: MORPHINE IV PRN ×2 (03:16→06:05)
--- NOTE | 2019-03-16 06:58 | EKG Report ---
Test Performed on : 03/16/2019 02:13:31 AM Test Reason : cp Blood Pressure : / mmHG Vent. Rate : 060 BPM Atrial Rate : 060 BPM P-R Int : 178 ms QRS Dur : 080 ms QT Int : 458 ms P-R-T Axes : 040 049 -63 degrees QTc Int : 458 ms Normal sinus rhythm. Left ventricular hypertrophy with repolarization abnormality Cannot rule out Septal infarct (cited on or before 03-JUN-2009) Abnormal ECG When compared with ECG of 04-MAR-2019 14:03, (Unconfirmed) No significant change was found Unconfirmed Result
--- NOTE | 2019-03-16 07:20 | Diag Imaging Result Doc PS360 ---
EXAM: CHEST-PORTABLE - 03/16/2019 HISTORY: chest pain TECHNIQUE: Portable chest COMPARISON: 12/02/2018 FINDINGS: Heart size is normal. There is some tortuosity of the thoracic aorta similar to prior. The lungs appear clear. There is no pleural effusion or pneumothorax identified. There is old fracture deformity of the proximal left humerus noted. IMPRESSION: No evidence of acute disease. Electronically signed by Kosta Sanderson 03/16/2019 7:18 AM
[2019-03-16] MEDS ORDERED: ASPIRIN PO SCH (09:00)
[2019-03-16] MEDS ORDERED: TYLENOL PO PRN (16:14)
[2019-03-16] MEDS ORDERED: NORVASC PO SCH (16:15)
--- NOTE | 2019-03-16 18:08 | HISTORY AND PHYSICAL ---
CHIEF COMPLAINT: Chest pain. HISTORY OF PRESENT ILLNESS: This is a 63-year-old gentleman, who presents to the emergency room complaining of midsternal chest pain that started about 4 hours prior to presentation to the emergency room. He described this as a tightness. He denies any alleviating or exacerbating factors. He denied any palpitations, nausea/vomiting, shortness of breath. He does have a history of CAD, having an [place] and stents in the past. PAST MEDICAL HISTORY: 1. Multiple strokes with residual left-sided weakness. 2. Coronary artery disease. 3. CAD status post percutaneous coronary intervention. 4. Seizure disorder. 5. Hyperlipidemia. 6. History of polysubstance abuse in the past. 7. Benign prostatic hypertrophy. 8. Diabetes mellitus, type 2. 9. Nicotine dependence. PAST SURGICAL HISTORY: 1. Colon resection with colostomy and subsequent reversal due to rectal abscess. 2. Stents. SOCIAL HISTORY: He continues to smoke about a pack a day. He does use jocelin on occasion. He denies any illicit drug use. ALLERGIES: No known drug allergies. HOME MEDICATIONS: The nursing staff will obtain and verify, and we will review and restart as appropriate. REVIEW OF SYSTEMS: Discussed with patient with pertinent positives stated in the HPI. He denied any syncope, dizziness, any palpitations, shortness of breath, cough, fever, chills, any night sweats, any nausea/vomiting, diarrhea, constipation, black or bloody vomitus or stools, any hematuria, dysuria, frequency, urgency. PHYSICAL EXAMINATION: GENERAL: This is a 63-year-old gentleman, who is lying in the bed in no distress. VITAL SIGNS: Blood pressure is 160/74 with a heart rate of 60, respirations are 18, temperature is 97.8 degrees with room air saturations 99% to 100%. HEENT: Head is normocephalic, atraumatic. Mucous membranes are moist. NECK: Supple with trachea midline. CARDIOVASCULAR: Regular rate and rhythm. S1 and S2 appreciated. He has no lower extremity edema. Calves are nontender. Bilateral peripheral pulses palpable x4 extremities. PULMONARY: Breath sounds are clear with no increased work of breathing noted. Chest rises and falls symmetric with respiration. Chest wall is nontender to palpation. GASTROINTESTINAL: Abdomen is soft, nontender, nondistended. Bowel sounds in all 4 quadrants. GENITOURINARY: He has no CVA or suprapubic tenderness. NEUROLOGIC: He is alert and oriented x3. SKIN: Warm and dry. DIAGNOSTIC STUDIES: WBC is 6.7 with hemoglobin 16.6, hematocrit 44.4, platelets of 227,000. Sodium 143, potassium 4.1, BUN 13, creatinine 0.8 with a glucose of 82. Troponins are negative on multiple occasions. Chest x-ray reveals no evidence of acute disease. EKG: Sinus rhythm at a rate of 60. ASSESSMENT: 1. Chest pain. The patient will be admitted to the Medical/Surgical floor at [place]. He will be placed on telemetry. We will continue to trend his troponin and cardiac profile. 2. History of coronary artery disease. 3. Seizure disorder. 4. Hyperlipidemia. 5. Diabetes mellitus, type 2. 6. Nicotine use and abuse. 7. Alcohol use and abuse. PLAN: We are attempting to identify his home medications. The patient does not have a list, he did not bring his medications with him, and he states that there is no one that he would get them at home. [facility] The clinic has been called multiple times throughout the day, a medical release has been faxed which we are having difficulty getting to the appropriate person to release so that we can obtain a list. We will continue Norvasc 10 mg p.o. daily, as well as Lasix 40 mg. He will be placed on patterned blood glucose with sliding scale insulin. Start Prilosec 40 mg for GI prophylaxis. The patient does have a seizure disorder. He does have Keppra listed, and he states that he takes 500 mg twice a day, which we will continue. Plan was discussed with Dr. Hdz. Further treatments pending hospital course. Dictated by EMILY Martinez for Terrell Hdz MD cc: EMILY Martinez MD [facility]
--- NOTE | 2019-03-16 20:03 | HISTORY AND PHYSICAL ---
ADDENDUM: The patient presented to the hospital with chest pain. He is certainly not forthcoming with information, and is very difficult to get to answer questions. He states that he had a stress test last week that was negative. He had a stent in 2011. I am going to admit him to the hospital, rule out ND and will follow. cc: Terrell Hdz MD
[2019-03-16] MEDS ORDERED: KEPPRA PO SCH (21:00)
[2019-03-16] MEDS ORDERED: LIPITOR PO SCH (21:00)
[2019-03-16] MEDS ORDERED: HUMALOG (PARKWAY) SUBQ SCH (21:00)
[2019-03-16] MEDS ORDERED: LASIX PO SCH (21:00)
[2019-03-16 21:01] VITALS: BP 161/75
--- NOTE | 2019-03-17 03:07 | DISCHARGE SUMMARY ---
ADMISSION DATE: 03/16/2019 DISCHARGE DATE: 03/16/2019 DIAGNOSES: 1. Chest pain, resolved. 2. History of coronary artery disease. 3. Seizure disorder. 4. Hyperlipidemia. 5. Diabetes mellitus type 2. 6. Nicotine use and abuse. 7. Alcohol use and abuse. DIAGNOSTICS: Chest x-ray revealed no evidence of acute disease. HOSPITAL COURSE: Mr. Bolanos presented to the emergency room complaining of midsternal chest pain. He denied any palpitations, shortness of breath. He ruled out by troponins and EKG. Pain did not recur and thankfully he is ready for discharge. DISCHARGE VITAL SIGNS: Blood pressure is 160/74 with a heart rate of 63, respirations 18, temperature is 98.4 degrees oral, room air sat 99%-100%. DISCHARGE PHYSICAL EXAMINATION: Cardiovascular: Regular rate and rhythm. S1, S2 appreciated. He has no lower extremity edema. Calves are nontender bilateral with peripheral pulses palpable x4 extremities. Pulmonary: Breath sounds are clear. No increased work of breathing noted. Gastrointestinal: Abdomen is soft, nontender, nondistended with bowel sounds in all 4 quadrants. DISCHARGE MEDICATIONS: We were unable to identify Mr. Bolanos medications as he does not have a list. He is unsure of what he takes. We were unable to get a list from the [place] pharmacy or get in contact with his sister. He has been instructed to continue his medications as he was taking them at home as per the [place] pharmacist. Dictated by EMILY Martinez for Terrell Hdz MD cc: EMILY Martinez MD
--- NOTE | 2019-03-17 03:29 | DISCHARGE SUMMARY ---
ADMISSION DATE: 03/16/2019 DISCHARGE DATE: 03/16/2019 Thankfully, all of patient's cardiac enzymes were negative. He had a stress test last week. Symptoms appear resolved. Again, patient appears to be intentionally difficulty in answering questions. In fact, he actually told 1 of the nurses that she was racist because she did not bring him a Tylenol. Thankfully, all of his symptoms have resolved. His enzymes have been negative and therefore we can discharge him home. Discussed with him that he needs to follow up outpatient with Cardiology if he continues to have symptoms as they may consider left heart catheterization at that point. cc: eTrrell Hdz MD
[2019-03-17] MEDS ORDERED: PRILOSEC PO SCH (07:00)
== END 2019-03-16 23:00 | disposition home or self-care (01) ==
LOC: P.ED 02:33 → INTOOBSV 05:10 → P.MEDSURG 05:10
PROVIDERS: ADMIT Family Medicine; ATTEND Family Medicine